=== PATIENT | male | born 1965 | race Caucasian/White ===

== ENCOUNTER 2022-09-08 14:20 | Inpatient (IN) | payer BC, SELFPAY ==
[2022-09-08 15:01] LABS: #Basophils 0.1 thou/uL (0.0-0.2); #Monocytes 0.8 thou/uL (0.11-0.59); #Neutrophils 10.5 thou/uL (1.40-6.50); %Basophils 0.5 % (0.0-1.0); %Eosinophils 0.1 % (0.0-10.0); %Lymphocytes 10.5 % (21.0-51.0); %Monocytes 6.4 % (0.0-10.0); %Neutrophils 81.9 % (42.0-75.0); Hematocrit 38.1 % (42.0-52.0); Hemoglobin 12.9 g/dL (14.0-18.0); Mean Corpuscular HGB CONC 33.9 g/dL (32.0-36.0); Mean Corpuscular Volume 100.5 fl (78.0-98.0); Mean Platelet Volume 9.6 fL (7.4-10.4); Platelet Count 173 10x3/uL (130-400); RBC Distribution Width 13.2 % (11.5-14.5); Red Blood Cell (RBC) Count 3.79 mill/uL (4.70-6.10); White Blood Cell (WBC) Count 12.8 10x3/uL (4.8-10.8)
[2022-09-08 15:26] LABS: ALT (SGPT) 317 U/L (8-55); AST (SGOT) 457 U/L (5-34); Albumin 4.9 g/dL (3.5-5.0); Alkaline Phosphatase 107 U/L (40-110); Anion Gap 31 mmol/L (10-20); BUN (Urea Nitrogen) 39 mg/dL (8.4-25.7); Bilirubin, Total 0.8 mg/dL (0.2-1.2); Calc. Creatinine Clearance 0 mL/min (70-130); Carbon Dioxide 14 mmol/L (22-29); Chloride 102 mmol/L (98-107); Estimated GFR 29; Globulin 3.2 g/dL (2.4-3.5); Glucose 106 mg/dL (70-105); Potassium 4.2 mmol/L (3.5-5.1); Protein, Total 8.1 g/dL (6.0-8.3); Sodium 143 mmol/L (136-145)
[2022-09-08] MEDS ORDERED: Ondansetron PF 4 MG/2 ML Vial ONE (15:31)
[2022-09-08] MEDS ORDERED: Diazepam 10 MG/2 ML SYRINGE ONE (16:13)
[2022-09-08] MEDS ORDERED: Lorazepam 1 MG TAB PO PRN (16:35)
[2022-09-08] MEDS ORDERED: Lorazepam 2 MG/ML VIAL IM PRN (16:35)
[2022-09-08] MEDS ORDERED: Communication Order-Pharmacy FS SCH (16:37)
[2022-09-08] MEDS ORDERED: fentaNYL 50 mcg/mL 1 mL Vial SLOW IVP PRN (16:37)
[2022-09-08] MEDS ORDERED: Morphine 4 MG/ML VIAL SLOW IVP PRN (16:37)
[2022-09-08] MEDS ORDERED: Promethazine HCl 25 MG/ML VIAL IM PRN (16:37)
[2022-09-08] MEDS ORDERED: Naloxone HCl 0.4 mg/ml Vial IV PRN (16:40)
[2022-09-08] MEDS ORDERED: Morphine 2 MG/ML VIAL SLOW IVP PRN (16:40)
[2022-09-08] MEDS ORDERED: HumaLOG 300 UNITS/3 ML VIAL SC PRN ×2 (16:43)
[2022-09-08] MEDS ORDERED: Glucagon 1 MG/ML KIT IM PRN (16:43)
[2022-09-08] MEDS ORDERED: Dextrose 5% in Water 1,000 ML IV PRN (16:43)
[2022-09-08] MEDS ORDERED: Dextrose 50% Abboject 50 ML SYRINGE SLOW IVP PRN (16:43)
[2022-09-08] MEDS ORDERED: Electrolyte Replacement Protocol 1 EACH FS SCH (16:45)
[2022-09-08] MEDS ORDERED: Lactated Ringer's 1,000 ML IV SCH ×2 (16:45)
[2022-09-08] MEDS ORDERED: Morphine 2 MG/ML VIAL ONE (16:56)
[2022-09-08 17:42] LABS: Hemoglobin A1c 5.2 % (4.0-6.0)
[2022-09-08] MEDS ORDERED: Pantoprazole 40 MG VIAL IVP SCH (17:45)
[2022-09-08 17:55] LABS: Acetaminophen Less than 10 mcg/mL (10.0-30.0); Alcohol 64.4 mg/dL (Less than 10); Bilirubin, Direct 0.6 mg/dL (0.1-0.3); CRP (Inflammatory) 0.63 mg/dL (= or < 0.5); Cardiac Risk 1.8 (Less than 4.5); Cholesterol 197 mg/dl (< 200 Desired); HDL Cholesterol 109 mg/dL (>60 Neg Risk); LDL Cholesterol, Calculated 75 mg/dL; Phosphorus 5.4 mg/dL (2.3-4.7); Triglycerides 64 mg/dL (Less than 150)
[2022-09-08] MEDS ORDERED: LevoFLOXacin 750 mg/D5W 750 MG in Premix Bag 1 BAG IVPB SCH ×2 (18:00→20:00)
[2022-09-08 18:06] LABS: Magnesium 0.7 mg/dL (1.6-2.6)
[2022-09-08] MEDS: Thiamine HCl 200 MG/2 ML VIAL SLOW IVP SCH (18:45)
[2022-09-08] MEDS: Lorazepam 1 MG TAB PO SCH ×2 (18:46→22:14)
[2022-09-08] MEDS: Ondansetron ODT 4 MG TAB PO PRN (18:46)
[2022-09-08 19:21] LABS: HIV (1/2) Antibody/Antigen Non-Reactive (NonReactive); HIV 1/2 INDEX 0.14 S/CO (<1.00); Hep C IgG Ab Non-Reactive S/CO (NonReactive); Hep C Index 0.07 S/CO (0-0.79)
[2022-09-08] MEDS ORDERED: Folic Acid 1 MG TAB PO SCH (19:30)
[2022-09-08] MEDS ORDERED: Multivit, Therapeutic 1 TAB PO SCH (19:30)
[2022-09-08] MEDS: Magnesium 2 GM/50 ML(in water) 2 GM in Premix Bag 1 BAG IVPB SCH ×2 (19:37→22:17)
[2022-09-08] MEDS: Lorazepam 2 MG/ML VIAL SLOW IVP PRN (19:37)
[2022-09-08 20:17] LABS: Lactic Acid 6.6 mmol/L (0.5-2.2)
[2022-09-08] MEDS: Lactated Ringer's 1,000 ML IV SCH (20:19)
[2022-09-08 20:44] LABS: Syphilis Antibody Nonreactive (Nonreactive); Syphilis Antibody Index 0.05 S/CO (<1.00 Non-Reactive)
[2022-09-08] MEDS: metroNIDAZOLE 500 MG in Premix Bag 1 BAG IVPB SCH (21:10)
[2022-09-08] MEDS: Heparin 5,000 UNITS/ML VIAL SC SCH (21:11)
[2022-09-09] MEDS: Lactated Ringer's 1,000 ML IV SCH ×5 (00:34→16:19)
[2022-09-09] MEDS: Lorazepam 1 MG TAB PO SCH ×3 (04:10→16:20)
[2022-09-09 04:16] LABS: Amphetamine Not Detected (NotDetected); Barbiturates Screen Not Detected (NotDetected); Benzodiazepine Screen Detected (NotDetected); Cocaine Metabolite Screen Not Detected (NotDetected); Methadone Not Detected (NotDetected); Methamphetamine Not Detected (NotDetected); Opiate Screen Detected (NotDetected); Oxycodone Screen Not Detected (NotDetected); Phencyclidine (PCP) Not Detected (NotDetected); THC/Cannabinoid Screen Not Detected (NotDetected); Tricyclic Screen Not Detected (NotDetected)
[2022-09-09 04:23] LABS: Bacteria/HPF None Seen HPF (None Seen); Bilirubin Negative (Negative); Blood, Urine 2+ (Negative); CAUTI Indications for Culture Pelvic or flank pain; Clarity Turbid (Clear); Glucose, Urine (Dipstick) Normal (Negative); Ketone, Urine 10 mg/dL (Negative); Leukocyte 500 Leu/uL (Negative); Nitrite Negative (Negative); Protein, Urine (Dipstick) 50 mg/dL (Neg-Trace); RBC/HPF 0-3 HPF (0-3); Specific Gravity, Urine 1.015 (1.002-1.036); Squamous Epithelial 0-3 HPF (0-3); Urobilinogen Normal mg/dL (Less than 2); WBC/HPF 21-50 HPF (0-3)
[2022-09-09 04:28] LABS: Urine Culture Reflex Yes Yes
[2022-09-09] MEDS: Ondansetron ODT 4 MG TAB PO PRN (04:41)
[2022-09-09 04:52] LABS: #Monocytes 0.4 thou/uL (0.11-0.59); #Neutrophils 6.8 thou/uL (1.40-6.50); %Basophils 0.1 % (0.0-1.0); %Lymphocytes 3.7 % (21.0-51.0); %Monocytes 5.7 % (0.0-10.0); %Neutrophils 89.8 % (42.0-75.0); Hematocrit 32.3 % (42.0-52.0); Hemoglobin 11.1 g/dL (14.0-18.0); Mean Corpuscular HGB CONC 34.4 g/dL (32.0-36.0); Mean Corpuscular Volume 99.1 fl (78.0-98.0); Mean Platelet Volume 10.5 fL (7.4-10.4); Platelet Count 109 10x3/uL (130-400); RBC Distribution Width 13.2 % (11.5-14.5); Red Blood Cell (RBC) Count 3.26 mill/uL (4.70-6.10); White Blood Cell (WBC) Count 7.6 10x3/uL (4.8-10.8)
[2022-09-09 05:21] LABS: CellaVision Operator ID lab.abc; Platelet Adequacy Comment Platelets Decreased; RBC Morphology Within Normal Limits
[2022-09-09 05:32] LABS: Lipase 3540 U/L (8-78)
[2022-09-09] MEDS: metroNIDAZOLE 500 MG in Premix Bag 1 BAG IVPB SCH ×3 (05:50→23:11)
[2022-09-09 07:22] LABS: Phosphorus 2.6 mg/dL (2.3-4.7)
[2022-09-09 07:23] LABS: ALT (SGPT) 196 U/L (8-55); AST (SGOT) 226 U/L (5-34); Albumin 3.9 g/dL (3.5-5.0); Alkaline Phosphatase 74 U/L (40-110); Anion Gap 20 mmol/L (10-20); BUN (Urea Nitrogen) 36 mg/dL (8.4-25.7); Bilirubin, Total 1.1 mg/dL (0.2-1.2); CRP (Inflammatory) 4.92 mg/dL (= or < 0.5); Calc. Creatinine Clearance 55 mL/min (70-130); Calcium 8.3 mg/dL (7.8-10.44); Carbon Dioxide 19 mmol/L (22-29); Chloride 103 mmol/L (98-107); Estimated GFR 42; Globulin 2.8 g/dL (2.4-3.5); Glucose 106 mg/dL (70-105); Magnesium 1.4 mg/dL (1.6-2.6); Potassium 5.1 mmol/L (3.5-5.1); Protein, Total 6.7 g/dL (6.0-8.3); Sodium 137 mmol/L (136-145)
[2022-09-09] MEDS: Heparin 5,000 UNITS/ML VIAL SC SCH ×2 (08:54→21:52)
[2022-09-09] MEDS ORDERED: Pantoprazole 40 MG VIAL IVP SCH (09:00)
[2022-09-09] MEDS ORDERED: Folic Acid 1 MG TAB PO SCH (09:00)
[2022-09-09] MEDS ORDERED: Multivit, Therapeutic 1 TAB PO SCH (09:00)
[2022-09-09] MEDS ORDERED: Albuterol 200 PUFF (6.7GM INHALER) INH SCH (12:30)
[2022-09-09] MEDS: Thiamine HCl 200 MG/2 ML VIAL SLOW IVP SCH (16:20)
[2022-09-09] MEDS: Lorazepam 2 MG/ML VIAL SLOW IVP PRN ×3 (16:20→21:51)
[2022-09-09] MEDS ORDERED: Lorazepam 1 MG TAB PO PRN (16:35)
[2022-09-09] MEDS ORDERED: Propofol 1,000 MG/100 ML VIAL IV ONE (17:46)
[2022-09-09] MEDS: Propofol 1,000 MG/100 ML VIAL IV PRN ×2 (17:50→23:10)
[2022-09-09] MEDS ORDERED: Lorazepam 2 MG/ML VIAL ONE ×2 (17:52→18:36)
[2022-09-09] MEDS ORDERED: Ventilator Sedation Protocol 1 EACH FS SCH (18:00)
[2022-09-09 18:03] LABS: #Monocytes 0.4 thou/uL (0.11-0.59); #Neutrophils 10.2 thou/uL (1.40-6.50); %Basophils 0.1 % (0.0-1.0); %Eosinophils 0.1 % (0.0-10.0); %Lymphocytes 12.1 % (21.0-51.0); %Monocytes 3.3 % (0.0-10.0); %Neutrophils 83.3 % (42.0-75.0); Hematocrit 30.6 % (42.0-52.0); Hemoglobin 9.9 g/dL (14.0-18.0); Mean Corpuscular HGB CONC 32.4 g/dL (32.0-36.0); Mean Corpuscular Hemoglobin 34.4 pg (27.0-31.0); Mean Platelet Volume 10.9 fL (7.4-10.4); Platelet Count 117 10x3/uL (130-400); RBC Distribution Width 13.2 % (11.5-14.5); Red Blood Cell (RBC) Count 2.88 mill/uL (4.70-6.10); White Blood Cell (WBC) Count 12.2 10x3/uL (4.8-10.8)
[2022-09-09] MEDS: Fentanyl CADD 100 ML IV SCH (18:11)
[2022-09-09] MEDS ORDERED: Fentanyl BOLUS 250 ML IVPB PRN (18:15)
[2022-09-09] MEDS ORDERED: DISCONTINUE PREVIOUS NARCOTIC PAIN MEDICATIONS AND BENZODIAZEPINES FS SCH (18:15)
[2022-09-09] MEDS ORDERED: Propofol BOLUS 1,000 MG/100 ML VIAL IV PRN (18:15)
[2022-09-09 18:19] LABS: Troponin I 0.018 ng/mL (< 0.028)
[2022-09-09] MEDS: Magnesium 2 GM/50 ML(in water) 2 GM in Premix Bag 1 BAG IVPB SCH ×2 (18:20→18:42)
[2022-09-09 18:25] LABS: Mean Corpuscular Volume 106.3 fl (78.0-98.0)
[2022-09-09 18:27] LABS: Band 21 % (5-11); Burr Cells SLIGHT = 2-5 cells HPF (0-1); CellaVision Operator ID LAB.KB; Large Platelets 0.8 % (0-5); Lymphocytes 5 % (21-51); Macrocytosis SLIGHT = 6-15 cells HPF (0-5); Manual Diff?? YES; Neutrophil 73 % (42-75); Ovalocytes SLIGHT = 2-5 cells HPF (0-1); Platelet Adequacy Comment Platelets Normal; Polychromasia SLIGHT = 2-3 cells HPF (0-2); Total Cell Count 119; Toxic Granulation SLIGHT; Vacuoles SLIGHT
[2022-09-09] MEDS ORDERED: levETIRAcetam 500 MG/5 ML VIAL SLOW IVP SCH (18:41)
[2022-09-09] MEDS ORDERED: NOREPINEPHRINE 8 MG/250 ML-D5W 250 ML ONE (18:41)
[2022-09-09] MEDS ORDERED: NOREPINEPHRINE 8 MG/250 ML-D5W 250 ML IVPB SCH (18:45)
[2022-09-09 18:46] LABS: ALT (SGPT) 301 U/L (8-55); AST (SGOT) 518 U/L (5-34); Albumin 3.1 g/dL (3.5-5.0); Alkaline Phosphatase 63 U/L (40-110); Anion Gap 27 mmol/L (10-20); BUN (Urea Nitrogen) 23 mg/dL (8.4-25.7); Calc. Creatinine Clearance 72 mL/min (70-130); Carbon Dioxide 9 mmol/L (22-29); Chloride 103 mmol/L (98-107); Estimated GFR 58; Globulin 2.4 g/dL (2.4-3.5); Glucose 161 mg/dL (70-105); Potassium 3.6 mmol/L (3.5-5.1); Protein, Total 5.5 g/dL (6.0-8.3); Sodium 135 mmol/L (136-145)
[2022-09-09] MEDS ORDERED: Sodium Chloride 0.9% 1,000 ML IV SCH ×2 (19:00→19:15)
[2022-09-09 19:04] LABS: Actual Bicarbonate (HCO3a) 17.4 mEq/L (22-28); Base Excess (BEa) -6.5 mEq/L (-2.0 to +3.0); CO2 Tension 29.6 mmHg (35.0-45.0); Calcium, Ionized (arterial) 0.94 mmol/L (1.12-1.30); Carboxyhemoglobin (COHb) 0.3 gm% (0.0-3.0); Hematocrit-ABG 34 % (42.0-52.0); Hemoglobin (Hb) 11.6 g/dL (14.0-18.0); O2 Tension (PaO2), arterial 62.6 mmHg (80.0-100.0); Potassium - ABG Lab 4.12 mmol/L (3.70-5.30); pH, Arterial 7.387 (7.35-7.45)
[2022-09-09 19:05] LABS: Puncture Site RRA
[2022-09-09] MEDS ORDERED: Sodium Bicarbonate 100 MEQ in Sterile Water 1,000 ML IV SCH (19:30)
[2022-09-09] MEDS: Sodium Bicarbonate 150 MEQ in Dextrose 5% in Water 1,000 ML IV SCH (20:35)
[2022-09-09] MEDS: Sodium Chloride 0.9% 1,000 ML IV SCH (20:36)
[2022-09-09] MEDS: levETIRAcetam 500 MG/5 ML VIAL SLOW IVP SCH (21:03)
[2022-09-09] MEDS: Multivitamins, Adult 10 ML, Folic Acid 1 MG, Thiamine HCl 100 MG in Dextrose 5 %-0.45 %... IV SCH (21:17)
[2022-09-09 22:00] LABS: Anion Gap 16 mmol/L (10-20); BUN (Urea Nitrogen) 22 mg/dL (8.4-25.7); Calc. Creatinine Clearance 81 mL/min (70-130); Carbon Dioxide 21 mmol/L (22-29); Chloride 100 mmol/L (98-107); Estimated GFR 66; Glucose 178 mg/dL (70-105); Magnesium 1.8 mg/dL (1.6-2.6); Potassium 3.7 mmol/L (3.5-5.1); Sodium 133 mmol/L (136-145)
[2022-09-09 22:02] LABS: Lactic Acid 2.3 mmol/L (0.5-2.2)
[2022-09-09 22:10] LABS: Phosphorus 2.1 mg/dL (2.3-4.7)
[2022-09-09 22:18] LABS: Troponin I 0.056 ng/mL (< 0.028)
[2022-09-09 22:19] LABS: Calcium 6.8 mg/dL (7.8-10.44)
[2022-09-09] MEDS ORDERED: Calcium Chloride 1 GM/10 ML Abboject SYRINGE IVP SCH (23:45)
[2022-09-10 01:05] LABS: Anion Gap 17 mmol/L (10-20); BUN (Urea Nitrogen) 23 mg/dL (8.4-25.7); Calc. Creatinine Clearance 78 mL/min (70-130); Calcium 8.2 mg/dL (7.8-10.44); Carbon Dioxide 22 mmol/L (22-29); Chloride 100 mmol/L (98-107); Estimated GFR 63; Glucose 173 mg/dL (70-105); Potassium 3.7 mmol/L (3.5-5.1); Sodium 135 mmol/L (136-145)
[2022-09-10 04:09] LABS: Mean Corpuscular HGB CONC 34.5 g/dL (32.0-36.0); Mean Corpuscular Hemoglobin 34.7 pg (27.0-31.0); RBC Distribution Width 13.3 % (11.5-14.5); Red Blood Cell (RBC) Count 2.88 mill/uL (4.70-6.10); White Blood Cell (WBC) Count 10.3 10x3/uL (4.8-10.8)
[2022-09-10] MEDS: Lorazepam 2 MG/ML VIAL SLOW IVP PRN ×6 (04:30→20:21)
[2022-09-10] MEDS: Sodium Chloride 0.9% 1,000 ML IV SCH ×3 (04:31→16:30)
[2022-09-10] MEDS: cefTRIAXone\\ROCEPHIN 1 GM in Sodium Chloride 0.9% 100 ML IVPB SCH (04:33)
[2022-09-10 04:38] LABS: ALT (SGPT) 287 U/L (8-55); AST (SGOT) 824 U/L (5-34); Albumin 3.2 g/dL (3.5-5.0); Alkaline Phosphatase 61 U/L (40-110); Anion Gap 17 mmol/L (10-20); BUN (Urea Nitrogen) 22 mg/dL (8.4-25.7); Bilirubin, Total 1.3 mg/dL (0.2-1.2); Calc. Creatinine Clearance 76 mL/min (70-130); Calcium 7.7 mg/dL (7.8-10.44); Carbon Dioxide 27 mmol/L (22-29); Chloride 96 mmol/L (98-107); Estimated GFR 61; Globulin 2.5 g/dL (2.4-3.5); Glucose 206 mg/dL (70-105); Magnesium 1.7 mg/dL (1.6-2.6); Potassium 3.6 mmol/L (3.5-5.1); Protein, Total 5.7 g/dL (6.0-8.3); Sodium 136 mmol/L (136-145)
[2022-09-10 04:44] LABS: Phosphorus 2.6 mg/dL (2.3-4.7)
[2022-09-10 04:53] LABS: Lipase 1289 U/L (8-78)
[2022-09-10 05:14] LABS: Hep B Surface AG-Rflx Sendout Negative (Negative); Hepatitis B Core Total Negative (Negative); Hepatitis B Surface AB-Sendout Non Reactive (.)
[2022-09-10] MEDS: metroNIDAZOLE 500 MG in Premix Bag 1 BAG IVPB SCH ×3 (05:35→22:38)
[2022-09-10] MEDS: Sodium Bicarbonate 150 MEQ in Dextrose 5% in Water 1,000 ML IV SCH (05:37)
[2022-09-10] MEDS: Propofol 1,000 MG/100 ML VIAL IV PRN ×4 (05:38→20:40)
[2022-09-10 05:39] LABS: Delete Auto Diff?? YES; Manual Diff?? YES; Mean Corpuscular Volume 100.7 fl (78.0-98.0); Platelet Count 99 10x3/uL (130-400)
[2022-09-10 06:33] LABS: Band 35 % (5-11); CellaVision Operator ID LAB.JMM; Lymphocytes 2 % (21-51); Macrocytosis SLIGHT = 6-15 cells HPF (0-5); Metamyelocyte 8 % (0-0); Monocytes 3 % (0-10); Neutrophil 52 % (42-75); Platelet Adequacy Comment Platelets Decreased; Polychromasia SLIGHT = 2-3 cells HPF (0-2); Total Cell Count 101
[2022-09-10] MEDS: Lactated Ringer's 1,000 ML IV SCH (08:14)
[2022-09-10] MEDS: Pantoprazole 40 MG VIAL IVP SCH (09:59)
[2022-09-10] MEDS: levETIRAcetam 500 MG/5 ML VIAL SLOW IVP SCH ×2 (09:59→20:34)
[2022-09-10] MEDS: Heparin 5,000 UNITS/ML VIAL SC SCH ×3 (10:50→20:46)
[2022-09-10] MEDS: Fentanyl CADD 100 ML IV SCH (13:37)
[2022-09-10] MEDS ORDERED: Lorazepam 1 MG TAB PO PRN (16:35)
[2022-09-10] MEDS ORDERED: Lorazepam 0.5 MG TAB PO SCH (16:45)
[2022-09-10] MEDS: Multivitamins, Adult 10 ML, Folic Acid 1 MG, Thiamine HCl 100 MG in Dextrose 5 %-0.45 %... IV SCH (23:16)
[2022-09-11] MEDS: Lorazepam 2 MG/ML VIAL SLOW IVP PRN ×2 (00:29→02:48)
[2022-09-11] MEDS: Sodium Chloride 0.9% 1,000 ML IV SCH (00:30)
[2022-09-11] MEDS: Propofol 1,000 MG/100 ML VIAL IV PRN ×3 (00:32→10:56)
[2022-09-11] MEDS: cefTRIAXone\\ROCEPHIN 1 GM in Sodium Chloride 0.9% 100 ML IVPB SCH (02:20)
[2022-09-11] MEDS ORDERED: Dexmedetomidine In 0.9 % NaCl 100 ML IVPB SCH (03:15)
[2022-09-11] MEDS: Dexmedetomidine 400 MCG, Admixture Fee 1 EACH in Sodium Chloride 0.9% 96 ML IVPB SCH ×3 (04:25→23:00)
[2022-09-11 04:29] LABS: Hematocrit 24.8 % (42.0-52.0); Hemoglobin 8.5 g/dL (14.0-18.0); Mean Corpuscular HGB CONC 34.3 g/dL (32.0-36.0); Mean Corpuscular Hemoglobin 34.8 pg (27.0-31.0); Mean Corpuscular Volume 101.6 fl (78.0-98.0); Mean Platelet Volume 11.1 fL (7.4-10.4); Platelet Count 103 10x3/uL (130-400); RBC Distribution Width 13.7 % (11.5-14.5); Red Blood Cell (RBC) Count 2.44 mill/uL (4.70-6.10); White Blood Cell (WBC) Count 8.8 10x3/uL (4.8-10.8)
[2022-09-11 04:56] LABS: Delete Auto Diff?? YES; Manual Diff?? YES
[2022-09-11 05:13] LABS: ALT (SGPT) 137 U/L (8-55); AST (SGOT) 168 U/L (5-34); Albumin 2.5 g/dL (3.5-5.0); Alkaline Phosphatase 49 U/L (40-110); Anion Gap 13 mmol/L (10-20); BUN (Urea Nitrogen) 19 mg/dL (8.4-25.7); Bilirubin, Total 0.9 mg/dL (0.2-1.2); Calc. Creatinine Clearance 92 mL/min (70-130); Calcium 6.2 mg/dL (7.8-10.44); Carbon Dioxide 24 mmol/L (22-29); Chloride 99 mmol/L (98-107); Estimated GFR 74; Globulin 2.3 g/dL (2.4-3.5); Glucose 227 mg/dL (70-105); Lipase 395 U/L (8-78); Potassium 3.1 mmol/L (3.5-5.1); Protein, Total 4.8 g/dL (6.0-8.3); Sodium 133 mmol/L (136-145)
[2022-09-11 05:22] LABS: Band 18 % (5-11); CellaVision Operator ID lab.abc; Large Platelets 1.9 % (0-5); Lymphocytes 7 % (21-51); Macrocytosis SLIGHT = 6-15 cells HPF (0-5); Monocytes 6 % (0-10); Neutrophil 69 % (42-75); Platelet Adequacy Comment Platelets Decreased; Smudge Cells 21.9 %; Total Cell Count 105
[2022-09-11] MEDS: metroNIDAZOLE 500 MG in Premix Bag 1 BAG IVPB SCH ×3 (05:29→21:04)
[2022-09-11] MEDS ORDERED: Calcium Chloride 1 GM/10 ML Abboject SYRINGE IVP SCH (05:30)
[2022-09-11] MEDS ORDERED: Albumin 25% 25 GM/100 ML BOT IVPB SCH ×2 (05:30→23:59)
[2022-09-11 07:18] LABS: Actual Bicarbonate (HCO3a) 21.9 mEq/L (22-28); Base Excess (BEa) -0.8 mEq/L (-2.0 to +3.0); CO2 Tension 29.2 mmHg (35.0-45.0); Carboxyhemoglobin (COHb) 0.3 gm% (0.0-3.0); Hematocrit-ABG 29 % (42.0-52.0); Hemoglobin (Hb) 9.8 g/dL (14.0-18.0); O2 Tension (PaO2), arterial 85.1 mmHg (80.0-100.0); pH, Arterial 7.492 (7.35-7.45)
[2022-09-11 07:30] LABS: Puncture Site RRA
[2022-09-11] MEDS: levETIRAcetam 500 MG/5 ML VIAL SLOW IVP SCH ×2 (08:09→21:03)
[2022-09-11] MEDS: Heparin 5,000 UNITS/ML VIAL SC SCH ×2 (08:09→21:03)
[2022-09-11] MEDS: Pantoprazole 40 MG VIAL IVP SCH (08:10)
[2022-09-11] MEDS ORDERED: Electrolyte Replacement Protocol FS PRN (08:15)
[2022-09-11] MEDS: Potassium Chloride 20 MEQ in Premix Bag 1 BAG IVPB SCH ×2 (08:27→10:57)
[2022-09-11] MEDS ORDERED: Thiamine 100 MG TAB PO SCH (09:00)
[2022-09-11] MEDS: Sodium Chloride 0.45% 1,000 ML IV SCH ×2 (09:40→18:36)
[2022-09-11] MEDS ORDERED: Fentanyl CADD 100 ML ONE (14:59)
[2022-09-11] MEDS ORDERED: Lorazepam 0.5 MG TAB PO PRN (16:35)
[2022-09-11] MEDS: Albumin 25% 25 GM/100 ML BOT IVPB SCH (21:14)
[2022-09-12] MEDS: cefTRIAXone\\ROCEPHIN 1 GM in Sodium Chloride 0.9% 100 ML IVPB SCH (02:22)
[2022-09-12] MEDS: Albumin 25% 25 GM/100 ML BOT IVPB SCH ×3 (03:11→16:40)
[2022-09-12 04:37] LABS: Hematocrit 23.5 % (42.0-52.0); Hemoglobin 7.9 g/dL (14.0-18.0); Mean Corpuscular HGB CONC 33.6 g/dL (32.0-36.0); Mean Corpuscular Hemoglobin 34.2 pg (27.0-31.0); Mean Corpuscular Volume 101.7 fl (78.0-98.0); Mean Platelet Volume 10.7 fL (7.4-10.4); Platelet Count 129 10x3/uL (130-400); RBC Distribution Width 13.6 % (11.5-14.5); Red Blood Cell (RBC) Count 2.31 mill/uL (4.70-6.10); White Blood Cell (WBC) Count 4.7 10x3/uL (4.8-10.8)
[2022-09-12 05:00] LABS: ALT (SGPT) 89 U/L (8-55); AST (SGOT) 87 U/L (5-34); Albumin 3.5 g/dL (3.5-5.0); Alkaline Phosphatase 60 U/L (40-110); Anion Gap 19 mmol/L (10-20); BUN (Urea Nitrogen) 23 mg/dL (8.4-25.7); Bilirubin, Total 0.8 mg/dL (0.2-1.2); Calc. Creatinine Clearance 88 mL/min (70-130); Carbon Dioxide 18 mmol/L (22-29); Chloride 99 mmol/L (98-107); Estimated GFR 67; Globulin 2.4 g/dL (2.4-3.5); Glucose 104 mg/dL (70-105); Lipase 210 U/L (8-78); Potassium 3.5 mmol/L (3.5-5.1); Protein, Total 5.9 g/dL (6.0-8.3); Sodium 132 mmol/L (136-145)
[2022-09-12] MEDS: metroNIDAZOLE 500 MG in Premix Bag 1 BAG IVPB SCH ×3 (05:00→22:04)
[2022-09-12 05:04] LABS: Calcium 6.7 mg/dL (7.8-10.44)
[2022-09-12 05:39] LABS: Delete Auto Diff?? YES; Manual Diff?? YES
[2022-09-12] MEDS ORDERED: Calcium Chloride 13.6 MEQ in Sodium Chloride 0.9% 100 ML IVPB SCH (05:45)
[2022-09-12 06:50] LABS: Band 22 % (5-11); CellaVision Operator ID LAB.GE; Eosinophils 2 % (0-10); Large Platelets 0.9 % (0-5); Lymphocytes 13 % (21-51); Macrocytosis SLIGHT = 6-15 cells HPF (0-5); Monocytes 13 % (0-10); Neutrophil 46 % (42-75); Platelet Adequacy Comment Platelets Decreased; Polychromasia SLIGHT = 2-3 cells HPF (0-2); Reactive Lymphocytes 2 % (0-10); Total Cell Count 106
[2022-09-12 07:08] LABS: Base Excess (BEa) -4.4 mEq/L (-2.0 to +3.0); Calcium, Ionized (arterial) 0.98 mmol/L (1.12-1.30); Carboxyhemoglobin (COHb) 0.1 gm% (0.0-3.0); Hematocrit-ABG 36 % (42.0-52.0); Hemoglobin (Hb) 12.2 g/dL (14.0-18.0); O2 Tension (PaO2), arterial 63.7 mmHg (80.0-100.0); Potassium - ABG Lab 3.47 mmol/L (3.70-5.30); pH, Arterial 7.419 (7.35-7.45)
[2022-09-12 07:20] LABS: Puncture Site RRA
[2022-09-12] MEDS: Heparin 5,000 UNITS/ML VIAL SC SCH ×2 (08:37→20:43)
[2022-09-12] MEDS: Pantoprazole 40 MG VIAL IVP SCH ×2 (08:37→20:43)
[2022-09-12] MEDS: levETIRAcetam 500 MG/5 ML VIAL SLOW IVP SCH ×2 (08:37→20:43)
[2022-09-12] MEDS: Potassium Chloride 20 MEQ in Premix Bag 1 BAG IVPB SCH ×2 (08:59→11:24)
[2022-09-12] MEDS: Propofol 1,000 MG/100 ML VIAL IV PRN (09:26)
[2022-09-12] MEDS: Midazolam HCl 2 mg/2 ml Vial IVP PRN ×5 (10:32→20:43)
[2022-09-12] MEDS: Dexmedetomidine 400 MCG, Admixture Fee 1 EACH in Sodium Chloride 0.9% 96 ML IVPB SCH ×3 (10:41→17:27)
[2022-09-12] MEDS ORDERED: Bisacodyl 10 MG SUPP PR SCH (11:15)
[2022-09-12] MEDS: Haloperidol Lactate 5 MG/ML VIAL IM SCH ×3 (11:25→22:08)
[2022-09-12] MEDS: NS 0.9% w/ 40 MEQ KCL 1,000 ML IV SCH ×2 (13:06→18:24)
[2022-09-12] MEDS: Dexmedetomidine 1,000 MCG, Admixture Fee 1 EACH in Sodium Chloride 0.9% 250 ML 240 ML IVPB SCH (21:00)
[2022-09-13] MEDS: NS 0.9% w/ 40 MEQ KCL 1,000 ML IV SCH (02:00)
[2022-09-13] MEDS: Propofol 1,000 MG/100 ML VIAL IV PRN ×2 (03:30→21:14)
[2022-09-13 03:55] LABS: #Eosinphils 0.1 thou/uL (0.0-0.7); #Monocytes 1.1 thou/uL (0.11-0.59); #Neutrophils 2.6 thou/uL (1.40-6.50); %Basophils 0.8 % (0.0-1.0); %Eosinophils 1.2 % (0.0-10.0); %Lymphocytes 15.8 % (21.0-51.0); %Monocytes 21.4 % (0.0-10.0); %Neutrophils 52.6 % (42.0-75.0); Hematocrit 23.2 % (42.0-52.0); Hemoglobin 7.7 g/dL (14.0-18.0); Manual Diff?? YES; Mean Corpuscular HGB CONC 33.2 g/dL (32.0-36.0); Mean Corpuscular Hemoglobin 33.9 pg (27.0-31.0); Mean Corpuscular Volume 102.2 fl (78.0-98.0); Mean Platelet Volume 10.2 fL (7.4-10.4); Platelet Count 150 10x3/uL (130-400); RBC Distribution Width 13.9 % (11.5-14.5); Red Blood Cell (RBC) Count 2.27 mill/uL (4.70-6.10)
[2022-09-13 04:19] LABS: ALT (SGPT) 61 U/L (8-55); AST (SGOT) 59 U/L (5-34); Albumin 3.5 g/dL (3.5-5.0); Alkaline Phosphatase 118 U/L (40-110); Anion Gap 20 mmol/L (10-20); BUN (Urea Nitrogen) 18 mg/dL (8.4-25.7); Bilirubin, Total 0.8 mg/dL (0.2-1.2); Calc. Creatinine Clearance 122 mL/min (70-130); Calcium 7.1 mg/dL (7.8-10.44); Carbon Dioxide 14 mmol/L (22-29); Chloride 109 mmol/L (98-107); Estimated GFR 98; Globulin 2.3 g/dL (2.4-3.5); Glucose 106 mg/dL (70-105); Lipase 107 U/L (8-78); Protein, Total 5.8 g/dL (6.0-8.3); Sodium 138 mmol/L (136-145)
[2022-09-13] MEDS: Dexmedetomidine 1,000 MCG, Admixture Fee 1 EACH in Sodium Chloride 0.9% 250 ML 240 ML IVPB SCH ×3 (04:37→22:52)
[2022-09-13] MEDS: cefTRIAXone\\ROCEPHIN 1 GM in Sodium Chloride 0.9% 100 ML IVPB SCH (04:37)
[2022-09-13 05:40] LABS: Band 15 % (5-11); CellaVision Operator ID LAB.GE; Eosinophils 2 % (0-10); Large Platelets 2.9 % (0-5); Lymphocytes 17 % (21-51); Macrocytosis SLIGHT = 6-15 cells HPF (0-5); Metamyelocyte 1 % (0-0); Monocytes 14 % (0-10); Myelocyte 1 % (0-0); Neutrophil 49 % (42-75); Nucleated RBC (Manual Ct) 2 % (0); Platelet Adequacy Comment Platelets Normal; Polychromasia MODERATE = 3-4 cells HPF (0-2); Reactive Lymphocytes 3 % (0-10); Total Cell Count 103
[2022-09-13] MEDS: Haloperidol Lactate 5 MG/ML VIAL IM SCH ×3 (06:12→17:33)
[2022-09-13] MEDS: metroNIDAZOLE 500 MG in Premix Bag 1 BAG IVPB SCH ×3 (06:12→21:09)
[2022-09-13 08:05] LABS: Base Excess (BEa) -7.7 mEq/L (-2.0 to +3.0); Calcium, Ionized (arterial) 0.92 mmol/L (1.12-1.30); Carboxyhemoglobin (COHb) 0.3 gm% (0.0-3.0); Hematocrit-ABG 26 % (42.0-52.0); Hemoglobin (Hb) 8.9 g/dL (14.0-18.0); O2 Tension (PaO2), arterial 73.3 mmHg (80.0-100.0); Potassium - ABG Lab 3.76 mmol/L (3.70-5.30); pH, Arterial 7.455 (7.35-7.45)
[2022-09-13 08:21] LABS: CO2 Tension 21.6 mmHg (35.0-45.0)
[2022-09-13 08:22] LABS: Actual Bicarbonate (HCO3a) 14.8 mEq/L (22-28); Puncture Site LRA
[2022-09-13] MEDS: levETIRAcetam 500 MG/5 ML VIAL SLOW IVP SCH ×2 (08:36→21:06)
[2022-09-13] MEDS: Pantoprazole 40 MG VIAL IVP SCH ×2 (08:37→21:05)
[2022-09-13] MEDS: Heparin 5,000 UNITS/ML VIAL SC SCH ×2 (08:37→21:05)
[2022-09-13] MEDS: Midazolam HCl 2 mg/2 ml Vial IVP PRN ×3 (08:42→19:24)
[2022-09-13] MEDS ORDERED: Sodium Bicarbonate 150 MEQ, Admixture Fee 1 EACH in Dextrose 5% in Water 850 ML IV SCH (09:00)
[2022-09-13] MEDS ORDERED: Sodium Chloride 0.45% 1,000 ML IV SCH (11:45)
[2022-09-13] MEDS: Sodium Chloride 0.9% 1,000 ML IV SCH ×2 (13:21→23:59)
[2022-09-14] MEDS: cefTRIAXone\\ROCEPHIN 1 GM in Sodium Chloride 0.9% 100 ML IVPB SCH (02:59)
[2022-09-14 03:55] LABS: Hemoglobin 8.5 g/dL (14.0-18.0); Mean Corpuscular Hemoglobin 34.4 pg (27.0-31.0); Mean Corpuscular Volume 101.2 fl (78.0-98.0); Mean Platelet Volume 11.2 fL (7.4-10.4); Platelet Count 199 10x3/uL (130-400); RBC Distribution Width 14.2 % (11.5-14.5); Red Blood Cell (RBC) Count 2.47 mill/uL (4.70-6.10); White Blood Cell (WBC) Count 7.4 10x3/uL (4.8-10.8)
[2022-09-14 04:26] LABS: ALT (SGPT) 46 U/L (8-55); AST (SGOT) 53 U/L (5-34); Alkaline Phosphatase 127 U/L (40-110); Anion Gap 20 mmol/L (10-20); BUN (Urea Nitrogen) 14 mg/dL (8.4-25.7); Bilirubin, Total 0.6 mg/dL (0.2-1.2); Calc. Creatinine Clearance 135 mL/min (70-130); Carbon Dioxide 15 mmol/L (22-29); Chloride 109 mmol/L (98-107); Estimated GFR 103; Globulin 2.8 g/dL (2.4-3.5); Glucose 98 mg/dL (70-105); Potassium 3.9 mmol/L (3.5-5.1); Protein, Total 5.8 g/dL (6.0-8.3); Sodium 140 mmol/L (136-145)
[2022-09-14 04:51] LABS: Delete Auto Diff?? YES; Manual Diff?? YES
[2022-09-14] MEDS: Propofol 1,000 MG/100 ML VIAL IV PRN ×4 (05:28→22:40)
[2022-09-14] MEDS: metroNIDAZOLE 500 MG in Premix Bag 1 BAG IVPB SCH ×3 (05:28→21:17)
[2022-09-14] MEDS: Haloperidol Lactate 5 MG/ML VIAL IM SCH ×4 (05:28→18:28)
[2022-09-14] MEDS: Midazolam HCl 2 mg/2 ml Vial IVP PRN ×2 (05:41→16:15)
[2022-09-14 05:51] LABS: Band 15 % (5-11); CellaVision Operator ID LAB.JMM; Eosinophils 1 % (0-10); Lymphocytes 16 % (21-51); Macrocytosis SLIGHT = 6-15 cells HPF (0-5); Monocytes 21 % (0-10); Myelocyte 3 % (0-0); Neutrophil 44 % (42-75); Nucleated RBC (Manual Ct) 1 % (0); Platelet Adequacy Comment Platelets Normal; Polychromasia SLIGHT = 2-3 cells HPF (0-2); Total Cell Count 101
[2022-09-14 08:03] LABS: Actual Bicarbonate (HCO3a) 17.4 mEq/L (22-28); Base Excess (BEa) -5.1 mEq/L (-2.0 to +3.0); Calcium, Ionized (arterial) 0.93 mmol/L (1.12-1.30); Carboxyhemoglobin (COHb) 0.3 gm% (0.0-3.0); Hematocrit-ABG 30 % (42.0-52.0); Hemoglobin (Hb) 10.2 g/dL (14.0-18.0); O2 Tension (PaO2), arterial 73.9 mmHg (80.0-100.0); Potassium - ABG Lab 3.48 mmol/L (3.70-5.30); pH, Arterial 7.465 (7.35-7.45)
[2022-09-14 08:04] LABS: CO2 Tension 24.8 mmHg (35.0-45.0); Puncture Site RRA
[2022-09-14] MEDS: levETIRAcetam 500 MG/5 ML VIAL SLOW IVP SCH ×2 (09:41→21:12)
[2022-09-14] MEDS: Heparin 5,000 UNITS/ML VIAL SC SCH ×2 (09:41→21:27)
[2022-09-14] MEDS: Pantoprazole 40 MG VIAL IVP SCH ×2 (09:41→21:10)
[2022-09-14] MEDS: Sodium Chloride 0.9% 1,000 ML IV SCH (09:41)
[2022-09-14] MEDS ORDERED: Sodium Chloride 0.9% 1,000 ML IV SCH (11:55)
[2022-09-14] MEDS ORDERED: Furosemide 40 MG/4 ML VIAL IVP SCH (11:55)
[2022-09-14] MEDS: Dexmedetomidine 1,000 MCG, Admixture Fee 1 EACH in Sodium Chloride 0.9% 250 ML 240 ML IVPB SCH ×2 (14:26→22:40)
[2022-09-14] MEDS ORDERED: Iopamidol-370 76% 500 ML MDV (1 ML CHARGE) ONE (15:22)
[2022-09-14] MEDS: Morphine 2 MG/ML VIAL SLOW IVP PRN (21:03)
[2022-09-15] MEDS: Haloperidol Lactate 5 MG/ML VIAL IM SCH ×4 (00:06→18:44)
[2022-09-15] MEDS: Morphine 2 MG/ML VIAL SLOW IVP PRN ×2 (00:11→04:46)
[2022-09-15] MEDS: Propofol 1,000 MG/100 ML VIAL IV PRN ×5 (02:25→21:04)
[2022-09-15] MEDS: cefTRIAXone\\ROCEPHIN 1 GM in Sodium Chloride 0.9% 100 ML IVPB SCH (02:25)
[2022-09-15 03:55] LABS: Hematocrit 26.7 % (42.0-52.0); Hemoglobin 8.9 g/dL (14.0-18.0); Mean Corpuscular HGB CONC 33.3 g/dL (32.0-36.0); Mean Corpuscular Hemoglobin 33.8 pg (27.0-31.0); Mean Corpuscular Volume 101.5 fl (78.0-98.0); Mean Platelet Volume 10.2 fL (7.4-10.4); Platelet Count 238 10x3/uL (130-400); Red Blood Cell (RBC) Count 2.63 mill/uL (4.70-6.10); White Blood Cell (WBC) Count 8.7 10x3/uL (4.8-10.8)
[2022-09-15 04:05] LABS: Delete Auto Diff?? YES; Manual Diff?? YES
[2022-09-15 04:20] LABS: ALT (SGPT) 36 U/L (8-55); AST (SGOT) 37 U/L (5-34); Alkaline Phosphatase 127 U/L (40-110); Anion Gap 20 mmol/L (10-20); BUN (Urea Nitrogen) 14 mg/dL (8.4-25.7); Bilirubin, Total 0.5 mg/dL (0.2-1.2); Calc. Creatinine Clearance 146 mL/min (70-130); Carbon Dioxide 15 mmol/L (22-29); Chloride 108 mmol/L (98-107); Estimated GFR 103; Globulin 2.5 g/dL (2.4-3.5); Glucose 97 mg/dL (70-105); Potassium 3.1 mmol/L (3.5-5.1); Protein, Total 5.5 g/dL (6.0-8.3); Sodium 140 mmol/L (136-145)
[2022-09-15 05:04] LABS: Band 7 % (5-11); CellaVision Operator ID lab.abc; Eosinophils 1 % (0-10); Lymphocytes 9 % (21-51); Macrocytosis SLIGHT = 6-15 cells HPF (0-5); Metamyelocyte 2 % (0-0); Monocytes 8 % (0-10); Myelocyte 2 % (0-0); Neutrophil 70 % (42-75); Platelet Adequacy Comment Platelets Normal; Polychromasia SLIGHT = 2-3 cells HPF (0-2); Smudge Cells 20.8 %; Total Cell Count 101
[2022-09-15] MEDS: Dexmedetomidine 1,000 MCG, Admixture Fee 1 EACH in Sodium Chloride 0.9% 250 ML 240 ML IVPB SCH ×3 (05:23→21:04)
[2022-09-15] MEDS: metroNIDAZOLE 500 MG in Premix Bag 1 BAG IVPB SCH ×3 (05:24→21:40)
[2022-09-15 08:14] LABS: Actual Bicarbonate (HCO3a) 18.5 mEq/L (22-28); Base Excess (BEa) -4.6 mEq/L (-2.0 to +3.0); CO2 Tension 27.5 mmHg (35.0-45.0); Calcium, Ionized (arterial) 0.92 mmol/L (1.12-1.30); Carboxyhemoglobin (COHb) 0.3 gm% (0.0-3.0); Hematocrit-ABG 28 % (42.0-52.0); Hemoglobin (Hb) 9.5 g/dL (14.0-18.0); O2 Tension (PaO2), arterial 75.5 mmHg (80.0-100.0); Potassium - ABG Lab 3.04 mmol/L (3.70-5.30); pH, Arterial 7.446 (7.35-7.45)
[2022-09-15 08:15] LABS: ALV-art Gradient 175.325 mmHg (0-20); Puncture Site RRA
[2022-09-15] MEDS: Pantoprazole 40 MG VIAL IVP SCH ×2 (08:35→21:38)
[2022-09-15] MEDS: Heparin 5,000 UNITS/ML VIAL SC SCH ×2 (08:35→21:38)
[2022-09-15] MEDS: levETIRAcetam 500 MG/5 ML VIAL SLOW IVP SCH ×2 (08:35→21:38)
[2022-09-15] MEDS: Potassium Chloride 20 MEQ in Premix Bag 1 BAG IVPB SCH ×2 (10:24→11:46)
[2022-09-16] MEDS: Haloperidol Lactate 5 MG/ML VIAL IM SCH ×3 (02:48→12:19)
[2022-09-16] MEDS: cefTRIAXone\\ROCEPHIN 1 GM in Sodium Chloride 0.9% 100 ML IVPB SCH (02:56)
[2022-09-16] MEDS: Dexmedetomidine 1,000 MCG, Admixture Fee 1 EACH in Sodium Chloride 0.9% 250 ML 240 ML IVPB SCH ×3 (03:55→18:32)
[2022-09-16 04:50] LABS: #Monocytes 1.1 thou/uL (0.11-0.59); #Neutrophils 9.2 thou/uL (1.40-6.50); %Basophils 0.2 % (0.0-1.0); %Eosinophils 0.2 % (0.0-10.0); %Lymphocytes 9.1 % (21.0-51.0); %Monocytes 8.9 % (0.0-10.0); %Neutrophils 76.5 % (42.0-75.0); Hemoglobin 8.7 g/dL (14.0-18.0); Mean Corpuscular HGB CONC 33.5 g/dL (32.0-36.0); Mean Corpuscular Volume 101.6 fl (78.0-98.0); Mean Platelet Volume 10.2 fL (7.4-10.4); Platelet Count 300 10x3/uL (130-400); RBC Distribution Width 14.2 % (11.5-14.5); Red Blood Cell (RBC) Count 2.56 mill/uL (4.70-6.10)
[2022-09-16] MEDS: metroNIDAZOLE 500 MG in Premix Bag 1 BAG IVPB SCH (04:59)
[2022-09-16] MEDS: Propofol 1,000 MG/100 ML VIAL IV PRN ×5 (05:08→22:34)
[2022-09-16 05:15] LABS: ALT (SGPT) 28 U/L (8-55); AST (SGOT) 32 U/L (5-34); Albumin 2.9 g/dL (3.5-5.0); Alkaline Phosphatase 126 U/L (40-110); Anion Gap 22 mmol/L (10-20); BUN (Urea Nitrogen) 14 mg/dL (8.4-25.7); Bilirubin, Total 0.4 mg/dL (0.2-1.2); Calc. Creatinine Clearance 140 mL/min (70-130); Calcium 7.3 mg/dL (7.8-10.44); Carbon Dioxide 15 mmol/L (22-29); Chloride 107 mmol/L (98-107); Estimated GFR 102; Globulin 2.8 g/dL (2.4-3.5); Glucose 95 mg/dL (70-105); Potassium 3.3 mmol/L (3.5-5.1); Protein, Total 5.7 g/dL (6.0-8.3); Sodium 141 mmol/L (136-145)
[2022-09-16 07:20] LABS: Actual Bicarbonate (HCO3a) 15.2 mEq/L (22-28); Base Excess (BEa) -8.1 mEq/L (-2.0 to +3.0); Calcium, Ionized (arterial) 0.94 mmol/L (1.12-1.30); Carboxyhemoglobin (COHb) 0.3 gm% (0.0-3.0); Hematocrit-ABG 31 % (42.0-52.0); Hemoglobin (Hb) 10.4 g/dL (14.0-18.0); O2 Tension (PaO2), arterial 101.3 mmHg (80.0-100.0); Potassium - ABG Lab 3.22 mmol/L (3.70-5.30); pH, Arterial 7.407 (7.35-7.45)
[2022-09-16 07:31] LABS: ALV-art Gradient 153.025 mmHg (0-20); CO2 Tension 24.7 mmHg (35.0-45.0); Puncture Site RRA
[2022-09-16] MEDS: Pantoprazole 40 MG VIAL IVP SCH ×2 (09:43→20:36)
[2022-09-16] MEDS: levETIRAcetam 500 MG/5 ML VIAL SLOW IVP SCH (09:43)
[2022-09-16] MEDS: Heparin 5,000 UNITS/ML VIAL SC SCH ×2 (09:55→20:40)
[2022-09-16] MEDS: Potassium Chloride 20 MEQ in Premix Bag 1 BAG IVPB SCH ×2 (10:41→10:52)
[2022-09-16] MEDS ORDERED: Piperacillin/Tazobactam 3.375 GM in Sodium Chloride 0.9% 100 ML IVPB SCH ×2 (11:15→11:45)
[2022-09-16] MEDS ORDERED: Haloperidol Lactate 5 MG/ML VIAL SLOW IVP PRN (12:34)
[2022-09-16] MEDS: Piperacillin/Tazobactam 3.375 GM in Sodium Chloride 0.9% 100 ML IVPB SCH ×2 (16:21→23:25)
[2022-09-16] MEDS ORDERED: Potassium Chloride 20 MEQ in Premix Bag 1 BAG IVPB SCH (19:15)
[2022-09-16] MEDS: Morphine 2 MG/ML VIAL SLOW IVP PRN ×2 (19:59→23:23)
[2022-09-16] MEDS: Lorazepam 2 MG/ML VIAL SLOW IVP PRN (20:30)
[2022-09-17] MEDS: Propofol 1,000 MG/100 ML VIAL IV PRN ×7 (01:26→22:48)
[2022-09-17] MEDS: Dexmedetomidine 1,000 MCG, Admixture Fee 1 EACH in Sodium Chloride 0.9% 250 ML 240 ML IVPB SCH ×4 (01:26→22:51)
[2022-09-17 04:09] LABS: #Eosinphils 0.1 thou/uL (0.0-0.7); #Neutrophils 9.8 thou/uL (1.40-6.50); %Basophils 0.3 % (0.0-1.0); %Eosinophils 0.6 % (0.0-10.0); %Lymphocytes 12.6 % (21.0-51.0); %Monocytes 7.8 % (0.0-10.0); %Neutrophils 74.8 % (42.0-75.0); Hematocrit 26.9 % (42.0-52.0); Hemoglobin 9.2 g/dL (14.0-18.0); Mean Corpuscular HGB CONC 34.2 g/dL (32.0-36.0); Mean Corpuscular Hemoglobin 33.8 pg (27.0-31.0); Mean Corpuscular Volume 98.9 fl (78.0-98.0); Mean Platelet Volume 9.8 fL (7.4-10.4); Platelet Count 299 10x3/uL (130-400); RBC Distribution Width 13.8 % (11.5-14.5); Red Blood Cell (RBC) Count 2.72 mill/uL (4.70-6.10); White Blood Cell (WBC) Count 13.2 10x3/uL (4.8-10.8)
[2022-09-17 04:33] LABS: Phosphorus 3.1 mg/dL (2.3-4.7)
[2022-09-17 04:34] LABS: ALT (SGPT) 22 U/L (8-55); AST (SGOT) 29 U/L (5-34); Albumin 2.8 g/dL (3.5-5.0); Alkaline Phosphatase 124 U/L (40-110); Anion Gap 11 mmol/L (10-20); BUN (Urea Nitrogen) 12 mg/dL (8.4-25.7); Bilirubin, Total 0.5 mg/dL (0.2-1.2); Calc. Creatinine Clearance 150 mL/min (70-130); Calcium 7.6 mg/dL (7.8-10.44); Carbon Dioxide 14 mmol/L (22-29); Chloride 120 mmol/L (98-107); Estimated GFR 104; Globulin 2.8 g/dL (2.4-3.5); Glucose 93 mg/dL (70-105); Magnesium 1.1 mg/dL (1.6-2.6); Potassium 3.7 mmol/L (3.5-5.1); Protein, Total 5.6 g/dL (6.0-8.3); Sodium 141 mmol/L (136-145)
[2022-09-17] MEDS: Morphine 2 MG/ML VIAL SLOW IVP PRN (04:59)
[2022-09-17] MEDS: Lorazepam 2 MG/ML VIAL SLOW IVP PRN ×3 (05:11→15:39)
[2022-09-17] MEDS: Piperacillin/Tazobactam 3.375 GM in Sodium Chloride 0.9% 100 ML IVPB SCH ×2 (08:00→15:32)
[2022-09-17] MEDS ORDERED: Magnesium Sulfate In Water 4 GM in Premix Bag 1 BAG IVPB SCH ×2 (08:00)
[2022-09-17] MEDS: Heparin 5,000 UNITS/ML VIAL SC SCH ×3 (09:36→20:31)
[2022-09-17] MEDS: Pantoprazole 40 MG VIAL IVP SCH ×2 (09:36→20:30)
[2022-09-17] MEDS: D5W-AA 4.25% with LYTES 1,000 ML IV SCH (16:43)
[2022-09-18] MEDS: Piperacillin/Tazobactam 3.375 GM in Sodium Chloride 0.9% 100 ML IVPB SCH ×2 (00:14→07:17)
[2022-09-18] MEDS: Propofol 1,000 MG/100 ML VIAL IV PRN ×6 (03:00→23:10)
[2022-09-18 04:57] LABS: #Eosinphils 0.1 thou/uL (0.0-0.7); #Monocytes 0.8 thou/uL (0.11-0.59); %Basophils 0.3 % (0.0-1.0); %Eosinophils 0.7 % (0.0-10.0); %Lymphocytes 11.9 % (21.0-51.0); %Monocytes 6.5 % (0.0-10.0); %Neutrophils 78.5 % (42.0-75.0); Hematocrit 25.8 % (42.0-52.0); Hemoglobin 8.8 g/dL (14.0-18.0); Mean Corpuscular HGB CONC 34.1 g/dL (32.0-36.0); Mean Corpuscular Hemoglobin 33.7 pg (27.0-31.0); Mean Corpuscular Volume 98.9 fl (78.0-98.0); Mean Platelet Volume 10.1 fL (7.4-10.4); Platelet Count 331 10x3/uL (130-400); RBC Distribution Width 13.7 % (11.5-14.5); Red Blood Cell (RBC) Count 2.61 mill/uL (4.70-6.10); White Blood Cell (WBC) Count 12.7 10x3/uL (4.8-10.8)
[2022-09-18 05:20] LABS: ALT (SGPT) 19 U/L (8-55); AST (SGOT) 24 U/L (5-34); Albumin 2.8 g/dL (3.5-5.0); Alkaline Phosphatase 122 U/L (40-110); Anion Gap 18 mmol/L (10-20); BUN (Urea Nitrogen) 11 mg/dL (8.4-25.7); Bilirubin, Total 0.5 mg/dL (0.2-1.2); Calc. Creatinine Clearance 139 mL/min (70-130); Calcium 8.1 mg/dL (7.8-10.44); Carbon Dioxide 18 mmol/L (22-29); Chloride 105 mmol/L (98-107); Estimated GFR 103; Globulin 3.1 g/dL (2.4-3.5); Glucose 111 mg/dL (70-105); Magnesium 1.5 mg/dL (1.6-2.6); Potassium 3.3 mmol/L (3.5-5.1); Protein, Total 5.9 g/dL (6.0-8.3); Sodium 138 mmol/L (136-145)
[2022-09-18] MEDS: Dexmedetomidine 1,000 MCG, Admixture Fee 1 EACH in Sodium Chloride 0.9% 250 ML 240 ML IVPB SCH ×3 (06:09→20:27)
[2022-09-18] MEDS: Potassium Chloride 20 MEQ in Premix Bag 1 BAG IVPB SCH ×2 (07:25→09:38)
[2022-09-18] MEDS ORDERED: Magnesium 2 GM/50 ML(in water) 2 GM in Premix Bag 1 BAG IVPB SCH (08:00)
[2022-09-18] MEDS: Heparin 5,000 UNITS/ML VIAL SC SCH ×2 (08:21→20:12)
[2022-09-18] MEDS: Pantoprazole 40 MG VIAL IVP SCH ×2 (08:21→20:12)
[2022-09-18] MEDS ORDERED: Meropenem 1 GM in Sodium Chloride 0.9% 100 ML IVPB SCH ×2 (11:15→14:00)
[2022-09-18] MEDS: Acetaminophen 325 MG Suppository PR PRN ×2 (12:14→20:13)
[2022-09-18] MEDS: Scopolamine 1.5 mg/72 hour Patch TD SCH (12:14)
[2022-09-18] MEDS: D5W-AA 4.25% with LYTES 1,000 ML IV SCH (14:34)
[2022-09-18] MEDS: Meropenem 1 GM in Sodium Chloride 0.9% 100 ML IVPB SCH (20:12)
[2022-09-18] MEDS: Lorazepam 2 MG/ML VIAL SLOW IVP PRN (20:13)
[2022-09-19] MEDS: Propofol 1,000 MG/100 ML VIAL IV PRN ×4 (03:02→21:00)
[2022-09-19] MEDS: Meropenem 1 GM in Sodium Chloride 0.9% 100 ML IVPB SCH ×3 (03:48→20:03)
[2022-09-19] MEDS: Dexmedetomidine 1,000 MCG, Admixture Fee 1 EACH in Sodium Chloride 0.9% 250 ML 240 ML IVPB SCH ×3 (03:48→21:32)
[2022-09-19 04:32] LABS: #Eosinphils 0.1 thou/uL (0.0-0.7); #Monocytes 0.7 thou/uL (0.11-0.59); #Neutrophils 9.2 thou/uL (1.40-6.50); %Basophils 0.3 % (0.0-1.0); %Eosinophils 0.9 % (0.0-10.0); %Lymphocytes 10.5 % (21.0-51.0); %Monocytes 6.4 % (0.0-10.0); %Neutrophils 80.6 % (42.0-75.0); Hematocrit 24.5 % (42.0-52.0); Hemoglobin 8.5 g/dL (14.0-18.0); Mean Corpuscular HGB CONC 34.7 g/dL (32.0-36.0); Mean Corpuscular Hemoglobin 33.7 pg (27.0-31.0); Mean Corpuscular Volume 97.2 fl (78.0-98.0); Mean Platelet Volume 10.3 fL (7.4-10.4); Platelet Count 346 10x3/uL (130-400); RBC Distribution Width 13.3 % (11.5-14.5); Red Blood Cell (RBC) Count 2.52 mill/uL (4.70-6.10); White Blood Cell (WBC) Count 11.4 10x3/uL (4.8-10.8)
[2022-09-19 04:55] LABS: Anion Gap 16 mmol/L (10-20); BUN (Urea Nitrogen) 11 mg/dL (8.4-25.7); Calc. Creatinine Clearance 150 mL/min (70-130); Calcium 8.4 mg/dL (7.8-10.44); Carbon Dioxide 20 mmol/L (22-29); Chloride 103 mmol/L (98-107); Estimated GFR 105; Glucose 109 mg/dL (70-105); Magnesium 1.4 mg/dL (1.6-2.6); Potassium 3.1 mmol/L (3.5-5.1); Sodium 136 mmol/L (136-145)
[2022-09-19] MEDS ORDERED: Midazolam HCl 2 mg/2 ml Vial SLOW IVP SCH (07:15)
[2022-09-19] MEDS ORDERED: CEFAZOLIN 1 GM VIAL SLOW IVP SCH (07:15)
[2022-09-19] MEDS ORDERED: Vecuronium 10 MG VIAL IVP SCH (07:15)
[2022-09-19] MEDS: Pantoprazole 40 MG VIAL IVP SCH ×2 (07:53→20:51)
[2022-09-19] MEDS ORDERED: CEFAZOLIN 2 GM VIAL SLOW IVP SCH (08:00)
[2022-09-19] MEDS ORDERED: Magnesium Sulfate In Water 4 GM in Premix Bag 1 BAG IVPB SCH (08:00)
[2022-09-19] MEDS ORDERED: Fentanyl 100 MCG/2 ML VIAL SLOW IVP SCH (08:00)
[2022-09-19] MEDS ORDERED: Lidocaine 1% w/Epinephrine 1:100K 20 ML VIAL IJ SCH (08:00)
[2022-09-19] MEDS ORDERED: CEFAZOLIN 2 GM in Sodium Chloride 0.9% 100 ML IVPB SCH (08:15)
[2022-09-19] MEDS: Potassium Chloride 20 MEQ in Premix Bag 1 BAG IVPB SCH ×2 (08:35→11:04)
[2022-09-19] MEDS: Acetaminophen 325 MG Suppository PR PRN (08:56)
[2022-09-19] MEDS: fentaNYL 50 mcg/mL 1 mL Vial SLOW IVP SCH ×2 (09:41→09:57)
[2022-09-19] MEDS: Morphine 2 MG/ML VIAL SLOW IVP PRN (10:26)
[2022-09-19] MEDS ORDERED: Fentanyl CADD 100 ML ONE (10:30)
[2022-09-19] MEDS: Fentanyl CADD 100 ML IV SCH (10:37)
[2022-09-19] MEDS: Heparin 5,000 UNITS/ML VIAL SC SCH ×2 (10:49→20:50)
[2022-09-19] MEDS: D5W-AA 4.25% with LYTES 1,000 ML IV SCH (15:26)
[2022-09-20] MEDS: Propofol 1,000 MG/100 ML VIAL IV PRN ×4 (01:16→17:35)
[2022-09-20 03:56] LABS: #Eosinphils 0.2 thou/uL (0.0-0.7); #Monocytes 0.7 thou/uL (0.11-0.59); %Basophils 0.3 % (0.0-1.0); %Eosinophils 1.7 % (0.0-10.0); %Lymphocytes 11.5 % (21.0-51.0); %Monocytes 7.4 % (0.0-10.0); %Neutrophils 77.6 % (42.0-75.0); Hematocrit 23.3 % (42.0-52.0); Hemoglobin 7.9 g/dL (14.0-18.0); Mean Corpuscular HGB CONC 33.9 g/dL (32.0-36.0); Mean Corpuscular Hemoglobin 33.9 pg (27.0-31.0); Mean Platelet Volume 9.8 fL (7.4-10.4); Platelet Count 350 10x3/uL (130-400); RBC Distribution Width 13.7 % (11.5-14.5); Red Blood Cell (RBC) Count 2.33 mill/uL (4.70-6.10)
[2022-09-20 04:18] LABS: Anion Gap 14 mmol/L (10-20); BUN (Urea Nitrogen) 11 mg/dL (8.4-25.7); Calc. Creatinine Clearance 152 mL/min (70-130); Calcium 8.3 mg/dL (7.8-10.44); Carbon Dioxide 23 mmol/L (22-29); Chloride 102 mmol/L (98-107); Estimated GFR 106; Glucose 125 mg/dL (70-105); Potassium 3.5 mmol/L (3.5-5.1); Sodium 135 mmol/L (136-145)
[2022-09-20] MEDS: Meropenem 1 GM in Sodium Chloride 0.9% 100 ML IVPB SCH ×3 (05:00→19:33)
[2022-09-20] MEDS: Dexmedetomidine 1,000 MCG, Admixture Fee 1 EACH in Sodium Chloride 0.9% 250 ML 240 ML IVPB SCH ×2 (06:00→10:57)
[2022-09-20] MEDS ORDERED: Fentanyl CADD 100 ML ONE (06:04)
[2022-09-20] MEDS: Fentanyl CADD 100 ML IV SCH (06:07)
[2022-09-20] MEDS: Heparin 5,000 UNITS/ML VIAL SC SCH ×2 (07:45→20:32)
[2022-09-20] MEDS: Potassium Chloride 20 MEQ in Premix Bag 1 BAG IVPB SCH ×2 (07:45→10:57)
[2022-09-20] MEDS: Pantoprazole 40 MG VIAL IVP SCH ×2 (07:45→20:43)
[2022-09-20] MEDS: AA 4.25 %/CALCIUM/LYTES/D5W 2,000 ML IV SCH (08:28)
[2022-09-20] MEDS: Metoclopramide HCl 10 MG/2 ML VIAL IVP SCH ×2 (13:36→21:32)
[2022-09-21] MEDS: Dexmedetomidine 1,000 MCG, Admixture Fee 1 EACH in Sodium Chloride 0.9% 250 ML 240 ML IVPB SCH ×2 (00:16→10:07)
[2022-09-21] MEDS ORDERED: Ondansetron PF 4 MG/2 ML Vial IVP PRN (00:31)
[2022-09-21] MEDS: Meropenem 1 GM in Sodium Chloride 0.9% 100 ML IVPB SCH ×3 (04:14→20:59)
[2022-09-21 04:40] LABS: #Basophils 0.1 thou/uL (0.0-0.2); #Eosinphils 0.1 thou/uL (0.0-0.7); #Monocytes 0.9 thou/uL (0.11-0.59); #Neutrophils 9.1 thou/uL (1.40-6.50); %Basophils 0.4 % (0.0-1.0); %Eosinophils 0.8 % (0.0-10.0); %Lymphocytes 9.8 % (21.0-51.0); %Monocytes 7.9 % (0.0-10.0); %Neutrophils 79.7 % (42.0-75.0); Hematocrit 24.7 % (42.0-52.0); Hemoglobin 8.4 g/dL (14.0-18.0); Mean Platelet Volume 10.2 fL (7.4-10.4); Platelet Count 434 10x3/uL (130-400); RBC Distribution Width 13.6 % (11.5-14.5); Red Blood Cell (RBC) Count 2.47 mill/uL (4.70-6.10); White Blood Cell (WBC) Count 11.5 10x3/uL (4.8-10.8)
[2022-09-21 05:01] LABS: Anion Gap 13 mmol/L (10-20); BUN (Urea Nitrogen) 14 mg/dL (8.4-25.7); Calc. Creatinine Clearance 143 mL/min (70-130); Calcium 8.8 mg/dL (7.8-10.44); Carbon Dioxide 24 mmol/L (22-29); Chloride 99 mmol/L (98-107); Estimated GFR 104; Glucose 121 mg/dL (70-105); Potassium 3.4 mmol/L (3.5-5.1); Sodium 133 mmol/L (136-145)
[2022-09-21] MEDS: Metoclopramide HCl 10 MG/2 ML VIAL IVP SCH ×4 (05:19→20:59)
[2022-09-21] MEDS: Propofol 1,000 MG/100 ML VIAL IV PRN (06:34)
[2022-09-21] MEDS: Scopolamine 1.5 mg/72 hour Patch TD SCH (10:11)
[2022-09-21] MEDS: Pantoprazole 40 MG VIAL IVP SCH ×2 (10:11→21:00)
[2022-09-21] MEDS: Heparin 5,000 UNITS/ML VIAL SC SCH ×2 (10:11→21:00)
[2022-09-21] MEDS: Potassium Chloride 20 MEQ in Premix Bag 1 BAG IVPB SCH ×2 (10:19→10:20)
[2022-09-21] MEDS ORDERED: Furosemide 40 MG/4 ML VIAL SLOW IVP SCH (10:30)
[2022-09-21] MEDS: Methylnaltrexone 12 MG/0.6 ML VIAL SC SCH (16:17)
[2022-09-21] MEDS: D5W-AA 4.25% with LYTES 1,000 ML IV SCH (17:02)
[2022-09-21] MEDS: Lorazepam 2 MG/ML VIAL SLOW IVP PRN (21:10)
[2022-09-21] MEDS: Midazolam HCl 2 mg/2 ml Vial IVP PRN (23:47)
[2022-09-22] MEDS: AA 4.25 %/CALCIUM/LYTES/D5W 2,000 ML IV SCH (01:19)
[2022-09-22] MEDS: Dexmedetomidine 1,000 MCG, Admixture Fee 1 EACH in Sodium Chloride 0.9% 250 ML 240 ML IVPB SCH ×3 (03:42→22:51)
[2022-09-22] MEDS: Metoclopramide HCl 10 MG/2 ML VIAL IVP SCH ×4 (03:42→20:43)
[2022-09-22] MEDS: Meropenem 1 GM in Sodium Chloride 0.9% 100 ML IVPB SCH ×3 (03:43→20:43)
[2022-09-22 04:23] LABS: #Basophils 0.1 thou/uL (0.0-0.2); #Eosinphils 0.1 thou/uL (0.0-0.7); #Monocytes 1.1 thou/uL (0.11-0.59); #Neutrophils 9.4 thou/uL (1.40-6.50); %Basophils 0.6 % (0.0-1.0); %Eosinophils 0.9 % (0.0-10.0); %Lymphocytes 10.5 % (21.0-51.0); %Monocytes 9.4 % (0.0-10.0); %Neutrophils 77.5 % (42.0-75.0); Hematocrit 23.1 % (42.0-52.0); Hemoglobin 7.7 g/dL (14.0-18.0); Mean Corpuscular HGB CONC 33.3 g/dL (32.0-36.0); Mean Corpuscular Hemoglobin 32.9 pg (27.0-31.0); Mean Corpuscular Volume 98.7 fl (78.0-98.0); Mean Platelet Volume 10.1 fL (7.4-10.4); Platelet Count 472 10x3/uL (130-400); RBC Distribution Width 13.4 % (11.5-14.5); Red Blood Cell (RBC) Count 2.34 mill/uL (4.70-6.10); White Blood Cell (WBC) Count 12.2 10x3/uL (4.8-10.8)
[2022-09-22] MEDS: Pantoprazole 40 MG VIAL IVP SCH ×2 (09:15→20:43)
[2022-09-22] MEDS: Heparin 5,000 UNITS/ML VIAL SC SCH ×2 (09:15→20:43)
[2022-09-22 10:05] LABS: Anion Gap 14 mmol/L (10-20); BUN (Urea Nitrogen) 16 mg/dL (8.4-25.7); Calc. Creatinine Clearance 137 mL/min (70-130); Calcium 8.6 mg/dL (7.8-10.44); Carbon Dioxide 27 mmol/L (22-29); Chloride 97 mmol/L (98-107); Estimated GFR 105; Glucose 122 mg/dL (70-105); Sodium 135 mmol/L (136-145)
[2022-09-22] MEDS: Potassium Chloride 40 MEQ in Premix Bag 1 BAG IVPB SCH ×2 (12:17→15:08)
[2022-09-22] MEDS: Lorazepam 2 MG/ML VIAL SLOW IVP PRN ×2 (18:25→21:39)
[2022-09-23] MEDS: Meropenem 1 GM in Sodium Chloride 0.9% 100 ML IVPB SCH ×3 (03:49→20:46)
[2022-09-23] MEDS: Metoclopramide HCl 10 MG/2 ML VIAL IVP SCH ×4 (03:49→20:47)
[2022-09-23 04:01] LABS: #Basophils 0.1 thou/uL (0.0-0.2); #Eosinphils 0.2 thou/uL (0.0-0.7); #Monocytes 1.1 thou/uL (0.11-0.59); #Neutrophils 10.1 thou/uL (1.40-6.50); %Basophils 0.5 % (0.0-1.0); %Eosinophils 1.3 % (0.0-10.0); %Lymphocytes 11.5 % (21.0-51.0); %Monocytes 8.4 % (0.0-10.0); %Neutrophils 77.4 % (42.0-75.0); Hematocrit 22.8 % (42.0-52.0); Hemoglobin 7.7 g/dL (14.0-18.0); Mean Corpuscular HGB CONC 33.8 g/dL (32.0-36.0); Mean Corpuscular Hemoglobin 33.3 pg (27.0-31.0); Mean Corpuscular Volume 98.7 fl (78.0-98.0); Mean Platelet Volume 10.1 fL (7.4-10.4); Platelet Count 537 10x3/uL (130-400); RBC Distribution Width 13.4 % (11.5-14.5); Red Blood Cell (RBC) Count 2.31 mill/uL (4.70-6.10); White Blood Cell (WBC) Count 13.1 10x3/uL (4.8-10.8)
[2022-09-23 04:28] LABS: Anion Gap 14 mmol/L (10-20); BUN (Urea Nitrogen) 17 mg/dL (8.4-25.7); Calc. Creatinine Clearance 137 mL/min (70-130); Calcium 8.9 mg/dL (7.8-10.44); Carbon Dioxide 24 mmol/L (22-29); Chloride 101 mmol/L (98-107); Estimated GFR 106; Glucose 125 mg/dL (70-105); Sodium 136 mmol/L (136-145)
[2022-09-23] MEDS: Potassium Chloride 20 MEQ in Premix Bag 1 BAG IVPB SCH ×4 (07:13→18:49)
[2022-09-23] MEDS: Dexmedetomidine 1,000 MCG, Admixture Fee 1 EACH in Sodium Chloride 0.9% 250 ML 240 ML IVPB SCH ×2 (07:24→18:27)
[2022-09-23] MEDS: Pantoprazole 40 MG VIAL IVP SCH ×2 (08:14→20:47)
[2022-09-23] MEDS: Heparin 5,000 UNITS/ML VIAL SC SCH ×2 (08:14→20:47)
[2022-09-23] MEDS: Methylnaltrexone 12 MG/0.6 ML VIAL SC SCH (15:04)
[2022-09-23 15:23] LABS: Potassium 3.3 mmol/L (3.5-5.1)
[2022-09-23] MEDS: AA 4.25 %/CALCIUM/LYTES/D5W 2,000 ML IV SCH (15:32)
[2022-09-23] MEDS: Budesonide 0.5 MG/2 ML NEB NEB SCH (18:33)
[2022-09-24] MEDS: Dexmedetomidine 1,000 MCG, Admixture Fee 1 EACH in Sodium Chloride 0.9% 250 ML 240 ML IVPB SCH ×2 (00:22→09:38)
[2022-09-24] MEDS: Metoclopramide HCl 10 MG/2 ML VIAL IVP SCH ×4 (03:50→20:50)
[2022-09-24 06:02] LABS: Anion Gap 12 mmol/L (10-20); BUN (Urea Nitrogen) 18 mg/dL (8.4-25.7); Calc. Creatinine Clearance 139 mL/min (70-130); Calcium 8.7 mg/dL (7.8-10.44); Carbon Dioxide 25 mmol/L (22-29); Chloride 99 mmol/L (98-107); Estimated GFR 107; Glucose 110 mg/dL (70-105); Potassium 3.3 mmol/L (3.5-5.1); Sodium 133 mmol/L (136-145)
[2022-09-24 06:13] LABS: #Basophils 0.1 thou/uL (0.0-0.2); #Eosinphils 0.3 thou/uL (0.0-0.7); #Monocytes 1.3 thou/uL (0.11-0.59); #Neutrophils 8.5 thou/uL (1.40-6.50); %Basophils 0.8 % (0.0-1.0); %Lymphocytes 17.6 % (21.0-51.0); %Monocytes 10.1 % (0.0-10.0); %Neutrophils 68.7 % (42.0-75.0); Hematocrit 23.2 % (42.0-52.0); Hemoglobin 7.9 g/dL (14.0-18.0); Mean Corpuscular HGB CONC 34.1 g/dL (32.0-36.0); Mean Corpuscular Hemoglobin 32.9 pg (27.0-31.0); Mean Corpuscular Volume 96.7 fl (78.0-98.0); Mean Platelet Volume 9.4 fL (7.4-10.4); Platelet Count 544 10x3/uL (130-400); RBC Distribution Width 13.2 % (11.5-14.5); White Blood Cell (WBC) Count 12.4 10x3/uL (4.8-10.8)
[2022-09-24] MEDS: Budesonide 0.5 MG/2 ML NEB NEB SCH ×2 (07:20→18:43)
[2022-09-24] MEDS: Pantoprazole 40 MG VIAL IVP SCH ×2 (09:35→20:50)
[2022-09-24] MEDS: Heparin 5,000 UNITS/ML VIAL SC SCH ×2 (09:35→20:50)
[2022-09-24] MEDS: Potassium Chloride 20 MEQ in Premix Bag 1 BAG IVPB SCH ×2 (09:35→11:15)
[2022-09-24] MEDS: Scopolamine 1.5 mg/72 hour Patch TD SCH ×2 (09:36→13:50)
[2022-09-24] MEDS ORDERED: Amlodipine 10 MG TAB PO SCH (10:40)
[2022-09-24] MEDS ORDERED: Enalaprilat Dihydrate 1.25 MG/ML VIAL SLOW IVP SCH (12:00)
[2022-09-24] MEDS: Acetaminophen 650 MG/20.3 ML UDCUP PO PRN (21:07)
[2022-09-25] MEDS: D5W-AA 4.25% with LYTES 1,000 ML IV SCH ×2 (01:19→20:37)
[2022-09-25] MEDS: Dexmedetomidine 1,000 MCG, Admixture Fee 1 EACH in Sodium Chloride 0.9% 250 ML 240 ML IVPB SCH (01:21)
[2022-09-25] MEDS: Metoclopramide HCl 10 MG/2 ML VIAL IVP SCH ×4 (03:40→20:37)
[2022-09-25 06:05] LABS: #Basophils 0.1 thou/uL (0.0-0.2); #Eosinphils 0.3 thou/uL (0.0-0.7); #Monocytes 1.4 thou/uL (0.11-0.59); #Neutrophils 10.9 thou/uL (1.40-6.50); %Basophils 0.8 % (0.0-1.0); %Lymphocytes 11.6 % (21.0-51.0); %Monocytes 9.6 % (0.0-10.0); Hematocrit 23.5 % (42.0-52.0); Hemoglobin 7.9 g/dL (14.0-18.0); Mean Corpuscular HGB CONC 33.6 g/dL (32.0-36.0); Mean Corpuscular Hemoglobin 32.9 pg (27.0-31.0); Mean Corpuscular Volume 97.9 fl (78.0-98.0); Mean Platelet Volume 9.4 fL (7.4-10.4); Platelet Count 524 10x3/uL (130-400); RBC Distribution Width 13.2 % (11.5-14.5); White Blood Cell (WBC) Count 14.6 10x3/uL (4.8-10.8)
[2022-09-25 06:08] LABS: Anion Gap 13 mmol/L (10-20); BUN (Urea Nitrogen) 19 mg/dL (8.4-25.7); Calc. Creatinine Clearance 131 mL/min (70-130); Calcium 8.9 mg/dL (7.8-10.44); Carbon Dioxide 24 mmol/L (22-29); Chloride 98 mmol/L (98-107); Estimated GFR 105; Glucose 114 mg/dL (70-105); Potassium 3.3 mmol/L (3.5-5.1); Sodium 132 mmol/L (136-145)
[2022-09-25] MEDS: Budesonide 0.5 MG/2 ML NEB NEB SCH ×2 (06:47→19:02)
[2022-09-25] MEDS: Pantoprazole 40 MG VIAL IVP SCH ×2 (07:56→20:37)
[2022-09-25] MEDS: Heparin 5,000 UNITS/ML VIAL SC SCH ×2 (07:56→20:37)
[2022-09-25] MEDS: Potassium Chloride 20 MEQ in Premix Bag 1 BAG IVPB SCH ×2 (08:14→08:15)
[2022-09-25] MEDS ORDERED: Electrolyte Replacement Protocol 1 EACH FS ONE (12:32)
[2022-09-25] MEDS: Methylnaltrexone 12 MG/0.6 ML VIAL SC SCH (15:27)
[2022-09-25] MEDS: Acetaminophen 650 MG/20.3 ML UDCUP PO PRN (19:46)
[2022-09-26 04:06] LABS: #Basophils 0.1 thou/uL (0.0-0.2); #Eosinphils 0.3 thou/uL (0.0-0.7); #Neutrophils 9.3 thou/uL (1.40-6.50); %Basophils 0.9 % (0.0-1.0); %Eosinophils 2.6 % (0.0-10.0); %Lymphocytes 15.6 % (21.0-51.0); %Monocytes 7.7 % (0.0-10.0); %Neutrophils 72.3 % (42.0-75.0); Hematocrit 22.5 % (42.0-52.0); Hemoglobin 7.7 g/dL (14.0-18.0); Mean Corpuscular HGB CONC 34.2 g/dL (32.0-36.0); Mean Corpuscular Hemoglobin 32.9 pg (27.0-31.0); Mean Corpuscular Volume 96.2 fl (78.0-98.0); Mean Platelet Volume 9.5 fL (7.4-10.4); Platelet Count 508 10x3/uL (130-400); RBC Distribution Width 13.5 % (11.5-14.5); Red Blood Cell (RBC) Count 2.34 mill/uL (4.70-6.10); White Blood Cell (WBC) Count 12.8 10x3/uL (4.8-10.8)
[2022-09-26 04:31] LABS: Anion Gap 10 mmol/L (10-20); BUN (Urea Nitrogen) 20 mg/dL (8.4-25.7); Calc. Creatinine Clearance 135 mL/min (70-130); Calcium 8.7 mg/dL (7.8-10.44); Carbon Dioxide 21 mmol/L (22-29); Chloride 101 mmol/L (98-107); Estimated GFR 105; Glucose 119 mg/dL (70-105); Potassium 3.3 mmol/L (3.5-5.1); Sodium 129 mmol/L (136-145)
[2022-09-26] MEDS: Metoclopramide HCl 10 MG/2 ML VIAL IVP SCH ×4 (04:32→20:26)
[2022-09-26] MEDS: Budesonide 0.5 MG/2 ML NEB NEB SCH ×2 (07:39→19:00)
[2022-09-26] MEDS: Potassium Chloride 20 MEQ in Premix Bag 1 BAG IVPB SCH ×2 (09:45→15:53)
[2022-09-26] MEDS: Heparin 5,000 UNITS/ML VIAL SC SCH ×2 (09:45→20:27)
[2022-09-26] MEDS: Pantoprazole 40 MG VIAL IVP SCH ×2 (09:46→20:27)
[2022-09-26] MEDS ORDERED: PROPOFOL 200 MG/20 ML VIAL ONE (10:45)
[2022-09-26] MEDS ORDERED: Lidocaine 1% PF 5 ML VIAL ONE (10:45)
[2022-09-26] MEDS: Dexmedetomidine 1,000 MCG, Admixture Fee 1 EACH in Sodium Chloride 0.9% 250 ML 240 ML IVPB SCH ×2 (13:22→22:20)
[2022-09-26] MEDS: Acetaminophen 650 MG/20.3 ML UDCUP PO PRN (13:30)
[2022-09-26] MEDS ORDERED: Potassium Chloride 20 MEQ in Premix Bag 1 BAG IVPB SCH (14:30)
[2022-09-26] MEDS: D5W-AA 4.25% with LYTES 1,000 ML IV SCH (18:22)
[2022-09-26 21:39] LABS: Potassium 3.8 mmol/L (3.5-5.1)
[2022-09-26] MEDS: Lorazepam 2 MG/ML VIAL SLOW IVP PRN (22:19)
[2022-09-27] MEDS: Metoclopramide HCl 10 MG/2 ML VIAL IVP SCH ×4 (02:59→20:47)
[2022-09-27 04:27] LABS: #Basophils 0.1 thou/uL (0.0-0.2); #Eosinphils 0.6 thou/uL (0.0-0.7); #Monocytes 0.9 thou/uL (0.11-0.59); #Neutrophils 8.3 thou/uL (1.40-6.50); %Basophils 0.9 % (0.0-1.0); %Eosinophils 5.3 % (0.0-10.0); %Lymphocytes 13.6 % (21.0-51.0); Hematocrit 23.1 % (42.0-52.0); Hemoglobin 7.8 g/dL (14.0-18.0); Mean Corpuscular HGB CONC 33.8 g/dL (32.0-36.0); Mean Corpuscular Hemoglobin 32.6 pg (27.0-31.0); Mean Corpuscular Volume 96.7 fl (78.0-98.0); Mean Platelet Volume 9.9 fL (7.4-10.4); Platelet Count 467 10x3/uL (130-400); Red Blood Cell (RBC) Count 2.39 mill/uL (4.70-6.10); White Blood Cell (WBC) Count 11.7 10x3/uL (4.8-10.8)
[2022-09-27 04:49] LABS: Anion Gap 15 mmol/L (10-20); BUN (Urea Nitrogen) 17 mg/dL (8.4-25.7); Calc. Creatinine Clearance 142 mL/min (70-130); Calcium 8.6 mg/dL (7.8-10.44); Carbon Dioxide 19 mmol/L (22-29); Chloride 101 mmol/L (98-107); Estimated GFR 107; Glucose 120 mg/dL (70-105); Potassium 3.5 mmol/L (3.5-5.1); Sodium 131 mmol/L (136-145)
[2022-09-27] MEDS: Budesonide 0.5 MG/2 ML NEB NEB SCH ×2 (06:39→18:55)
[2022-09-27] MEDS: Heparin 5,000 UNITS/ML VIAL SC SCH ×2 (10:51→20:46)
[2022-09-27] MEDS: Pantoprazole 40 MG VIAL IVP SCH ×2 (10:52→20:46)
[2022-09-27] MEDS: Potassium Chloride 20 MEQ in Premix Bag 1 BAG IVPB SCH (11:08)
[2022-09-27] MEDS: Dexmedetomidine 1,000 MCG, Admixture Fee 1 EACH in Sodium Chloride 0.9% 250 ML 240 ML IVPB SCH ×2 (13:12→20:46)
[2022-09-27] MEDS: clonazePAM 0.5 MG TAB PO PRN (13:13)
[2022-09-27] MEDS: Scopolamine 1.5 mg/72 hour Patch TD SCH (13:13)
[2022-09-27] MEDS: D5W-AA 4.25% with LYTES 1,000 ML IV SCH (15:35)
[2022-09-27] MEDS: Methylnaltrexone 12 MG/0.6 ML VIAL SC SCH (15:48)
[2022-09-27] MEDS: Acetaminophen 650 MG/20.3 ML UDCUP PO PRN (17:35)
[2022-09-27 19:44] LABS: Potassium 4.1 mmol/L (3.5-5.1)
[2022-09-28] MEDS: Metoclopramide HCl 10 MG/2 ML VIAL IVP SCH ×4 (03:55→20:49)
[2022-09-28] MEDS: Budesonide 0.5 MG/2 ML NEB NEB SCH ×2 (06:59→18:29)
[2022-09-28 07:10] LABS: #Basophils 0.1 thou/uL (0.0-0.2); #Eosinphils 0.7 thou/uL (0.0-0.7); #Monocytes 0.9 thou/uL (0.11-0.59); #Neutrophils 8.5 thou/uL (1.40-6.50); %Eosinophils 5.8 % (0.0-10.0); %Lymphocytes 16.6 % (21.0-51.0); %Monocytes 7.2 % (0.0-10.0); %Neutrophils 67.7 % (42.0-75.0); Hematocrit 22.5 % (42.0-52.0); Hemoglobin 7.7 g/dL (14.0-18.0); Mean Corpuscular HGB CONC 34.2 g/dL (32.0-36.0); Mean Corpuscular Hemoglobin 32.5 pg (27.0-31.0); Mean Corpuscular Volume 94.9 fl (78.0-98.0); Platelet Count 516 10x3/uL (130-400); RBC Distribution Width 13.9 % (11.5-14.5); Red Blood Cell (RBC) Count 2.37 mill/uL (4.70-6.10); White Blood Cell (WBC) Count 12.6 10x3/uL (4.8-10.8)
[2022-09-28 07:40] LABS: Anion Gap 14 mmol/L (10-20); BUN (Urea Nitrogen) 25 mg/dL (8.4-25.7); Calc. Creatinine Clearance 125 mL/min (70-130); Calcium 8.9 mg/dL (7.8-10.44); Carbon Dioxide 19 mmol/L (22-29); Chloride 101 mmol/L (98-107); Estimated GFR 103; Glucose 113 mg/dL (70-105); Potassium 3.8 mmol/L (3.5-5.1); Sodium 130 mmol/L (136-145)
[2022-09-28] MEDS ORDERED: Iopamidol 370 76% 100 ML VIAL ONE (08:52)
[2022-09-28] MEDS: Heparin 5,000 UNITS/ML VIAL SC SCH (09:05)
[2022-09-28] MEDS: Pantoprazole 40 MG VIAL IVP SCH ×2 (09:05→20:49)
[2022-09-28] MEDS ORDERED: VANCOMYCIN 1.25 GM/250 ML BAG 1.25 GM in Premix Bag 1 BAG IVPB SCH (09:45)
[2022-09-28] MEDS: Lactated Ringer's 1,000 ML IV SCH (10:34)
[2022-09-28] MEDS ORDERED: Meropenem 1 GM in Sodium Chloride 0.9% 100 ML IVPB SCH (10:45)
[2022-09-28] MEDS ORDERED: VANCOMYCIN 2 GRAM/500 ML BAG 2 GM in Premix Bag 1 BAG IVPB SCH (11:00)
[2022-09-28 11:12] LABS: Bilirubin Negative (Negative); Blood, Urine Negative (Negative); Clarity Clear (Clear); Glucose, Urine (Dipstick) Normal (Negative); Ketone, Urine Negative (Negative); Leukocyte Negative Leu/uL (Negative); Nitrite Negative (Negative); Protein, Urine (Dipstick) 20 mg/dL (Neg-Trace); Specific Gravity, Urine 1.021 (1.002-1.036); Urobilinogen Normal mg/dL (Less than 2); pH, Urine 5.5 (5.0-9.0)
[2022-09-28] MEDS: D5W-AA 4.25% with LYTES 1,000 ML IV SCH (11:44)
[2022-09-28] MEDS: Dexmedetomidine 1,000 MCG, Admixture Fee 1 EACH in Sodium Chloride 0.9% 250 ML 240 ML IVPB SCH (11:44)
[2022-09-28] MEDS ORDERED: Propofol 1,000 MG/100 ML VIAL IV PRN (12:45)
[2022-09-28] MEDS ORDERED: Lorazepam 2 MG/ML VIAL ONE (13:04)
[2022-09-28] MEDS ORDERED: Sodium Bicarbonate 2.5 MEQ/5 ML VIAL ONE (13:18)
[2022-09-28] MEDS ORDERED: Lorazepam 2 MG/ML VIAL SLOW IVP SCH (13:30)
[2022-09-28] MEDS: Acetaminophen 650 MG/20.3 ML UDCUP PO PRN (18:01)
[2022-09-28] MEDS: Meropenem 1 GM in Sodium Chloride 0.9% 100 ML IVPB SCH (19:34)
[2022-09-28] MEDS: Vancomycin 1 GM in Premix Bag 1 BAG IVPB SCH (23:16)
[2022-09-29] MEDS: Dexmedetomidine 1,000 MCG, Admixture Fee 1 EACH in Sodium Chloride 0.9% 250 ML 240 ML IVPB SCH ×2 (01:17→14:22)
[2022-09-29] MEDS: Metoclopramide HCl 10 MG/2 ML VIAL IVP SCH ×4 (03:14→20:57)
[2022-09-29] MEDS: Meropenem 1 GM in Sodium Chloride 0.9% 100 ML IVPB SCH ×3 (03:14→20:57)
[2022-09-29 03:37] LABS: #Basophils 0.1 thou/uL (0.0-0.2); #Eosinphils 0.9 thou/uL (0.0-0.7); #Monocytes 0.9 thou/uL (0.11-0.59); #Neutrophils 9.4 thou/uL (1.40-6.50); %Basophils 0.8 % (0.0-1.0); %Eosinophils 6.7 % (0.0-10.0); %Lymphocytes 13.7 % (21.0-51.0); %Neutrophils 70.4 % (42.0-75.0); Hematocrit 24.3 % (42.0-52.0); Hemoglobin 8.5 g/dL (14.0-18.0); Mean Corpuscular Hemoglobin 33.1 pg (27.0-31.0); Mean Corpuscular Volume 94.6 fl (78.0-98.0); Mean Platelet Volume 9.9 fL (7.4-10.4); Platelet Count 424 10x3/uL (130-400); RBC Distribution Width 13.4 % (11.5-14.5); Red Blood Cell (RBC) Count 2.57 mill/uL (4.70-6.10); White Blood Cell (WBC) Count 13.3 10x3/uL (4.8-10.8)
[2022-09-29 03:59] LABS: Anion Gap 17 mmol/L (10-20); BUN (Urea Nitrogen) 18 mg/dL (8.4-25.7); Calc. Creatinine Clearance 141 mL/min (70-130); Calcium 9.2 mg/dL (7.8-10.44); Carbon Dioxide 18 mmol/L (22-29); Chloride 101 mmol/L (98-107); Estimated GFR 107; Glucose 106 mg/dL (70-105); Potassium 3.7 mmol/L (3.5-5.1); Sodium 132 mmol/L (136-145)
[2022-09-29] MEDS: Budesonide 0.5 MG/2 ML NEB NEB SCH ×2 (07:43→18:55)
[2022-09-29] MEDS ORDERED: Amlodipine 5 MG TAB PER TUBE SCH (09:00)
[2022-09-29] MEDS: Pantoprazole 40 MG VIAL IVP SCH ×2 (09:22→20:57)
[2022-09-29] MEDS: Vancomycin 1 GM in Premix Bag 1 BAG IVPB SCH ×2 (14:04→23:17)
[2022-09-29] MEDS: D5W-AA 4.25% with LYTES 1,000 ML IV SCH (14:21)
[2022-09-29] MEDS: Lactated Ringer's 1,000 ML IV SCH (20:56)
[2022-09-29] MEDS: Heparin 5,000 UNITS/ML VIAL SC SCH (20:57)
[2022-09-29] MEDS: Acetaminophen 650 MG/20.3 ML UDCUP PO PRN (21:55)
[2022-09-29 22:30] LABS: Vancomycin, Trough 17.9 ug/mL
[2022-09-30] MEDS: Meropenem 1 GM in Sodium Chloride 0.9% 100 ML IVPB SCH ×3 (03:20→20:39)
[2022-09-30] MEDS: Acetaminophen 650 MG/20.3 ML UDCUP PO PRN ×3 (03:21→15:29)
[2022-09-30 04:16] LABS: #Basophils 0.1 thou/uL (0.0-0.2); #Eosinphils 0.9 thou/uL (0.0-0.7); #Monocytes 0.9 thou/uL (0.11-0.59); %Basophils 0.8 % (0.0-1.0); %Eosinophils 7.4 % (0.0-10.0); %Monocytes 7.3 % (0.0-10.0); %Neutrophils 64.6 % (42.0-75.0); Hematocrit 22.4 % (42.0-52.0); Hemoglobin 7.4 g/dL (14.0-18.0); Mean Corpuscular Hemoglobin 31.6 pg (27.0-31.0); Mean Corpuscular Volume 95.7 fl (78.0-98.0); Mean Platelet Volume 9.9 fL (7.4-10.4); Platelet Count 448 10x3/uL (130-400); RBC Distribution Width 13.7 % (11.5-14.5); Red Blood Cell (RBC) Count 2.34 mill/uL (4.70-6.10); White Blood Cell (WBC) Count 12.4 10x3/uL (4.8-10.8)
[2022-09-30] MEDS: Metoclopramide HCl 10 MG/2 ML VIAL IVP SCH ×4 (04:32→20:40)
[2022-09-30 04:40] LABS: Anion Gap 18 mmol/L (10-20); BUN (Urea Nitrogen) 15 mg/dL (8.4-25.7); Calc. Creatinine Clearance 133 mL/min (70-130); Carbon Dioxide 19 mmol/L (22-29); Chloride 99 mmol/L (98-107); Estimated GFR 105; Glucose 116 mg/dL (70-105); Potassium 3.5 mmol/L (3.5-5.1); Sodium 132 mmol/L (136-145)
[2022-09-30] MEDS: Dexmedetomidine 1,000 MCG, Admixture Fee 1 EACH in Sodium Chloride 0.9% 250 ML 240 ML IVPB SCH (05:14)
[2022-09-30] MEDS: Budesonide 0.5 MG/2 ML NEB NEB SCH ×2 (07:27→18:43)
[2022-09-30] MEDS: Potassium Chloride 20 MEQ in Premix Bag 1 BAG IVPB SCH ×2 (09:30→11:30)
[2022-09-30 09:51] VITALS: BMI 26.5
[2022-09-30] MEDS: Heparin 5,000 UNITS/ML VIAL SC SCH ×2 (09:55→20:40)
[2022-09-30] MEDS: Pantoprazole 40 MG VIAL IVP SCH ×2 (09:55→20:40)
[2022-09-30] MEDS: clonazePAM 0.5 MG TAB PO PRN ×2 (10:04→15:30)
[2022-09-30] MEDS: Vancomycin 1 GM in Premix Bag 1 BAG IVPB SCH (10:07)
[2022-09-30] MEDS: Lactated Ringer's 1,000 ML IV SCH (15:30)
[2022-09-30 15:54] LABS: Potassium 3.8 mmol/L (3.5-5.1)
[2022-09-30] MEDS: D5W-AA 4.25% with LYTES 1,000 ML IV SCH ×2 (16:44→21:01)
[2022-10-01] MEDS: Vancomycin 1 GM in Premix Bag 1 BAG IVPB SCH (00:29)
[2022-10-01] MEDS: Acetaminophen 650 MG/20.3 ML UDCUP PO PRN ×2 (00:29→16:05)
[2022-10-01] MEDS: Metoclopramide HCl 10 MG/2 ML VIAL IVP SCH ×3 (03:53→15:32)
[2022-10-01] MEDS: Meropenem 1 GM in Sodium Chloride 0.9% 100 ML IVPB SCH ×3 (03:53→18:00)
[2022-10-01] MEDS: Dexmedetomidine 1,000 MCG, Admixture Fee 1 EACH in Sodium Chloride 0.9% 250 ML 240 ML IVPB SCH (03:56)
[2022-10-01 04:57] LABS: #Basophils 0.1 thou/uL (0.0-0.2); #Eosinphils 1.3 thou/uL (0.0-0.7); #Monocytes 0.7 thou/uL (0.11-0.59); #Neutrophils 6.8 thou/uL (1.40-6.50); %Basophils 0.9 % (0.0-1.0); %Eosinophils 11.7 % (0.0-10.0); %Lymphocytes 18.7 % (21.0-51.0); %Monocytes 6.1 % (0.0-10.0); %Neutrophils 60.7 % (42.0-75.0); Hematocrit 21.9 % (42.0-52.0); Hemoglobin 7.4 g/dL (14.0-18.0); Mean Corpuscular HGB CONC 33.8 g/dL (32.0-36.0); Mean Corpuscular Hemoglobin 32.2 pg (27.0-31.0); Mean Corpuscular Volume 95.2 fl (78.0-98.0); Mean Platelet Volume 10.1 fL (7.4-10.4); Platelet Count 457 10x3/uL (130-400); RBC Distribution Width 13.7 % (11.5-14.5); White Blood Cell (WBC) Count 11.3 10x3/uL (4.8-10.8)
[2022-10-01 05:20] LABS: Anion Gap 15 mmol/L (10-20); BUN (Urea Nitrogen) 14 mg/dL (8.4-25.7); Calc. Creatinine Clearance 138 mL/min (70-130); Calcium 8.9 mg/dL (7.8-10.44); Carbon Dioxide 20 mmol/L (22-29); Chloride 100 mmol/L (98-107); Estimated GFR 108; Glucose 112 mg/dL (70-105); Potassium 3.6 mmol/L (3.5-5.1); Sodium 131 mmol/L (136-145)
[2022-10-01] MEDS: Budesonide 0.5 MG/2 ML NEB NEB SCH (07:10)
[2022-10-01] MEDS: Pantoprazole 40 MG VIAL IVP SCH (08:54)
[2022-10-01] MEDS: Heparin 5,000 UNITS/ML VIAL SC SCH (08:55)
[2022-10-01] MEDS: clonazePAM 0.5 MG TAB PO PRN (10:33)
[2022-10-01] MEDS ORDERED: Morphine 4 MG/ML VIAL SLOW IVP PRN (15:15)
[2022-10-01] MEDS ORDERED: Morphine 4 MG/ML VIAL ONE (15:23)
[2022-10-01 15:27] VITALS: BP 166/94
[2022-10-01 16:06] VITALS: TEMP 101.2
== END 2022-10-01 18:27 | DRG 4 ==
LOC: ERS 14:20 → ERHOLD 16:42 → 2NO 18:21 → CCU 09-09 17:27
PROVIDERS: ADMIT Family Medicine; ATTEND Internal Medicine
PROC: 5A1955Z Respiratory Ventilation, Greater than 96 Consecutive Hours (ICD-10-PCS; 2022-09-09)
PROC: 0BH17EZ Insertion of Endotracheal Airway into Trachea, Via Natural or Artificial Opening (ICD-10-PCS; 2022-09-09)
PROC: 0DH67UZ Insertion of Feeding Device into Stomach, Via Natural or Artificial Opening (ICD-10-PCS; 2022-09-09)
PROC: 3E0G76Z Introduction of Nutritional Substance into Upper GI, Via Natural or Artificial Opening (ICD-10-PCS; 2022-09-09)
PROC: 3E033XZ Introduction of Vasopressor into Peripheral Vein, Percutaneous Approach (ICD-10-PCS; 2022-09-09)
PROC: 5A12012 Performance of Cardiac Output, Single, Manual (ICD-10-PCS; 2022-09-09)
PROC: 4A10X4Z Monitoring of Central Nervous Electrical Activity, External Approach (ICD-10-PCS; 2022-09-10)
PROC: 4A133R1 Monitoring of Arterial Saturation, Peripheral, Percutaneous Approach (ICD-10-PCS; 2022-09-11)
PROC: 30233J1 Transfusion of Nonautologous Serum Albumin into Peripheral Vein, Percutaneous Approach (ICD-10-PCS; 2022-09-11)
PROC: 0B113F4 Bypass Trachea to Cutaneous with Tracheostomy Device, Percutaneous Approach (ICD-10-PCS; principal; 2022-09-19)
PROC: 0DH64UZ Insertion of Feeding Device into Stomach, Percutaneous Endoscopic Approach (ICD-10-PCS; 2022-09-19)
PROC: HZ2ZZZZ Detoxification Services for Substance Abuse Treatment (ICD-10-PCS; 2022-09-19)
DX: K85.21 Alcohol induced acute pancreatitis with uninfected necrosis (principal); J96.01 Acute respiratory failure with hypoxia; G93.41 Metabolic encephalopathy; K72.00 Acute and subacute hepatic failure without coma; I46.8 Cardiac arrest due to other underlying condition; N17.9 Acute kidney failure, unspecified; S06.89AA Other specified intracranial injury with loss of consciousness status unknown, initial encounter; E87.20 Acidosis, unspecified; R65.10 Systemic inflammatory response syndrome (SIRS) of non-infectious origin without acute organ dysfunction; R18.8 Other ascites; K56.7 Ileus, unspecified; E51.2 Wernicke's encephalopathy; D62 Acute posthemorrhagic anemia; F10.239 Alcohol dependence with withdrawal, unspecified; K59.39 Other megacolon; G72.81 Critical illness myopathy; I10 Essential (primary) hypertension; K21.9 Gastro-esophageal reflux disease without esophagitis; E78.00 Pure hypercholesterolemia, unspecified; E86.0 Dehydration; Z71.41 Alcohol abuse counseling and surveillance of alcoholic; R56.9 Unspecified convulsions; E83.51 Hypocalcemia; Z79.899 Other long term (current) drug therapy; E83.42 Hypomagnesemia
CPT/HCPCS: 36415; 36416; 36600; 70450; 71045; 71275; 74018; 74019; 74176; 74177; 76380; 76700; 80048; 80053; 80061; 80143; 80202; 80306; 80307; 81001; 81003; 82010; 82140; 82248; 82805; 83036; 83605; 83615; 83690; 83735; 83880; 84100; 84145; 84484; 85025; 86140; 86704; 86706; 86780; 86803; 87040; 87070; 87086; 87205; 87324; 87340; 87389; 87449; 93005; 93010; 93306; 94002; 94003; 94640; 95712; 95819; 95957; 96361; 96374; 96375; C9113; J0696; J1630; J1644; J1940; J1953; J1956; J2060; J2185; J2212; J2250; J2270; J2272; J2405; J2543; J2550; J2704; J2765; J3010; J3360; J3370; J3370-JW; J3411; J3475; J3480; J3490; J7042; J7050; J7070; J7120; J7626; P9047; Q0162; Q9967

== ENCOUNTER 2023-02-07 06:50 | Day surgery (SDC) | payer BC ==
[2023-02-06 08:42] VITALS: BMI 21.9
[2023-02-07] MEDS ORDERED: Lidocaine 1% PF 5 ML VIAL ONE (08:10)
[2023-02-07] MEDS ORDERED: PROPOFOL 20 ML ONE ×2 (08:10)
== END 2023-02-07 10:02 | disposition home or self-care (01) ==
LOC: SDC 06:50
PROVIDERS: ATTEND Internal Medicine
PROC: 0DJD8ZZ Inspection of Lower Intestinal Tract, Via Natural or Artificial Opening Endoscopic (ICD-10-PCS; principal; 2023-02-07)
DX: Z12.11 Encounter for screening for malignant neoplasm of colon (principal); K57.30 Diverticulosis of large intestine without perforation or abscess without bleeding; K64.9 Unspecified hemorrhoids; K64.8 Other hemorrhoids; Z86.010 Personal history of colon polyps
CPT/HCPCS: J2704